=== PATIENT | male | born 1995 | race Caucasian/White ===

== ENCOUNTER → 2019-07-08 12:24 | Outpatient (CLI) | payer MEDICAID, SELFPAY ==
--- NOTE | ~2019-07-08 | XR_ITS ---
EXAMINATION: XR chest 2V EXAM DATE: 07/08/2019 13:04 INDICATION: Tobacco use. TECHNIQUE: Frontal and lateral projections of the chest obtained and reviewed. Comparison is made to prior examination from 07/17/17. FINDINGS: The lungs are clear. There are no pleural effusions. The cardiomediastinal silhouette is within normal limits. There is no pneumothorax suspected. The bones and soft tissues are unremarkab le. IMPRESSION: No acute cardiopulmonary findings. Reviewed, dictated and finalized at location A. LAW[employer]ER
== END ==
PROVIDERS: PCP Emergency Medicine; Visit Provider Emergency Medicine
DX: Z72.0 Tobacco use (principal)
CPT/HCPCS: 71046

== ENCOUNTER 2020-01-01 22:14 | Emergency (ER) | payer OTHER, SELFPAY ==
--- NOTE | ~2020-01-01 | CT_ITS ---
EXAMINATION: CT abdomen pelvis w con DATE: 01/01/2020 23:54 INDICATION: Lower abdominal pain TECHNIQUE: Computed tomography (CT) of the abdomen and pelvis was performed with 100 cc Omnipaque 350 intravenous contrast. The dose-length product was 1582.76 mGy-cm. Automated exposure control and ite rative reconstruction technique were employed. COMPARISON: CT dated 06/02/2017 FINDINGS: Lung bases are unremarkable. Heart size normal. No pleural or pericardial effusion. No sign ificant vascular abnormality. No lymphadenopathy. Fatty infiltration of the liver. The spleen, pancreas, adrenal glands and kidneys are unremarkable. G allbladder is present nonobstructive bowel gas pattern. No free air or free fluid. Grade 1 spondyloli sthesis at L5-S1 secondary to bilateral spondylolysis. No acute osseous abnormality. IMPRESSION: 1. No acute abdominal abnormality. Reviewed, dictated and finalized at location B.
[2020-01-01 22:18] VITALS: BP 154/97; PULSE 97; RESP 18; TEMP 35.7; O2SAT 97
[2020-01-01 22:39] LABS: Basophils Absolute Auto 0.2 K/mm3 (0.0-0.1); Basophils Percent Auto 0.9 % (0.2-1.2); Eosinophils Absolute Auto 1.1 K/mm3 (0-0.3); Eosinophils Percent Auto 5.6 % (0-4.4); Hematocrit 47.6 % (42.0-52.0); Hemoglobin 16.4 g/dL (14.0-18.0); Immature Granulocyte Absolute 0.09 K/mm3 (0.00-0.031); Immature Granulocyte Percent A 0.5 % (0-0.5); Lymphocytes Absolute Auto 5.09 K/mm3 (0.9-3.2); Lymphocytes Percent Auto 27.3 % (18.3-44.2); Mean Corpuscular HGB Conc 34.5 g/dl (32-36); Mean Corpuscular Hemoglobin 29.5 pg (26-34); Mean Corpuscular Volume 85.8 fl (80-100); Mean Platelet Volume 11.5 fl (7.4-10.4); Monocytes Absolute Auto 1.1 K/mm3 (0.1-0.6); Monocytes Percent Auto 5.7 % (2.6-8.5); Neutrophils Absolute Auto 11.2 K/mm3 (1.3-6.7); Platelet Count Result 245 k/mm3 (150-375); Red Blood Count 5.55 M/mm3 (4.6-6.20); Red Cell Distribution Width 12.8 % (11.5-14.5); White Blood Count 18.6 K/mm3 (4.5-10.0)
[2020-01-01 22:43] LABS: Add Urine Microscopic? YES; Appearance Urine Clear (Clear); Bacteria Urine Trace /hpf; Bilirubin Urine Negative (Negative); Blood Urine Negative (Negative); Color Urine Yellow (Yellow); Glucose Urine UA Negative (Negative); Ketones Urine Trace mg/dL (Negative); Leukocyte Esterase Ur Negative LEU/UL (Negative); Mucus Urine Heavy /lpf; Nitrate Urine Negative (Negative); Protein Urine 2+ mg/dL (Negative); RBC Urine 0-2 /hpf (0-2); Squamous Epithelial Cell Urine Moderate /hpf (Few)
[2020-01-01 22:44] LABS: Specific Grav Ur 1.036 (1.001-1.035)
[2020-01-01 23:00] LABS: Alanine Aminotransferase 60 U/L (4-50); Alkaline Phosphatase 81 U/L (38-126); Aspartate Amino Transferase 53 U/L (17-59); Bilirubin,Total 0.6 mg/dL (0.2-1.3); Blood Urea Nitrogen 13 mg/dL (9-20); Calcium 9.9 mg/dL (8.4-10.2); Carbon Dioxide 27 mmol/L (22-30); Chloride 98 mmol/L (98-107); Estimated CRCL calculation 147 ml/min; Estimated Glomerular Filt Rate > 60; Glucose 155 mg/dL (75-110); Lipase 33 U/L (23-300); Potassium 3.9 mmol/L (3.4-5.0); Sodium 135 mmol/L (137-145)
--- NOTE | 2020-01-01 23:27 | ED.ABDPAIN ---
HPI - Abdominal Pain General Chief Complaint: Abdominal Pain Stated Complaint: ABD PAIN Time Seen by Provider: 01/01/20 23:23 History of Present Illness HPI narrative: Patient presents with his mother for lower abdominal pain. Started a week and half ago. Is been waxing and waning but has been persistent. The pain is now 6 out of 10. He does not want any pain medication. He has had no nausea or vomiting. He has had no blood in his stool. He had a upper and lower GI previously and had gastritis and irritable bowel syndrome. He has had no weight loss. Pain is better when he lays flat. Pain is worse with bowel movement or eating. 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 He smokes cigarettes, drinks alcohol, and does marijuana. MD elicited complaint: abdominal pain Pertinent past history: gastritis and other (Irritable bowel syndrome) Onset (ago): week(s) Pain Consistency: constant Related Data Allergies Allergy/AdvReac Type Severity Reaction Status Date / Time No Known Allergies Allergy Verified 01/01/20 22:15 Review of Systems Review of Systems: Narrative: CONSTITUTIONAL: Denies fever, chills, or sweats. EYES: Denies visual changes, redness, or discharge. ENT: Denies rhinorrhea, congestion, sore throat, or otalgia. CARDIOVASCULAR: Denies chest pain, palpitations, or edema. RESPIRATORY: Denies cough or dyspnea. GASTROINTESTINAL: He has abdominal pain, but not nausea, vomiting, or diarrhea. GENITOURINARY: Denies dysuria or hematuria. SKIN: Denies rash or itching. MUSCULOSKELETAL: Denies back pain, joint pain, or myalgia. NEUROLOGIC: Denies headache, numbness, or weakness. PSYCHIATRIC: Denies anxiety or depression. [facility] Past Medical History Medical History (Updated 01/02/20 @ 00:55 by Bibi Dobbs MD) Gastritis Irritable bowel syndrome Morbid obesity Family History Family History (Updated 03/24/17 @ 13:53 by DOCTOR UNKNOWN) Father Diabetes mellitus Hypertension Other Family history of allergic disorder Family history of malignant neoplasm Social History Social History (Updated 01/01/20 @ 23:30 by Bibi Dobbs MD) Smoking status: Current every day smoker Alcohol intake: current Substance use: current Substance use type: marijuana Exam Narrative: Exam Narrative: GENERAL: Well-appearing, well-nourished, and in no acute distress. Morbid obesity HEAD: Normocephalic, atraumatic. EYES: PERRLA and EOMI. ENT: Nares clear, no rhinorrhea or epistaxis. Mucous membranes moist. NECK: Supple. CHEST: Clear to auscultation. No respiratory distress. HEART: Regular rate and rhythm. No murmur heard. Normal peripheral pulses. ABDOMEN: Soft,tender, nondistended, normal active bowel sounds. EXTREMITIES: Normal range of motion. No edema. SKIN: Warm, dry, no rash. NEURO: No focal deficits. Alert and oriented x3. PSYCH: Normal mood and affect. Course Reevaluation(s) Reevaluation #1: Went in to talk to the patient about his CAT scan findings. He has heard of fatty liver before but did not know he had it. He will need to follow-up with his GI doctor Dr. Hernandez. I offered to prescribe some Bentyl. 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 Date: 01/02/20 Time: 00:56 Vital Signs Vital signs: Vital Signs Temperature 96.2 F L 01/01/20 22:18 Pulse Rate 97 01/01/20 22:18 Respiratory Rate 18 01/01/20 22:18 Blood Pressure 154/97 H 01/01/20 22:18 Pulse Oximetry 97 01/01/20 22:18 Temperature 96.2 F L 01/01/20 22:18 Pulse Rate 97 01/01/20 22:18 Respiratory Rate 18 01/01/20 22:18 Blood Pressure 154/97 H 01/01/20 22:18 Pulse Oximetry 97 01/01/20 22:18 MDM - Abdominal Pain Medical Records Attestation: I reviewed the patient's medical records. Lab Data Attestation: I reviewed the patient's lab results. Result diagrams: 01/01/20 22:32 01/01/20 22:32
[2020-01-02] MEDS: SODIUM CHLORIDE 0.9% IV 1,000 ML 999 ML IV CONT (00:07)
[2020-01-02 01:04] VITALS: BP 142/78; PULSE 78; RESP 18; O2SAT 98
== END 2020-01-02 01:05 | disposition home or self-care (01) ==
PROVIDERS: Emergency Provider Emergency Medicine; PCP Internal Medicine
DX: K58.9 Irritable bowel syndrome, unspecified (principal); R10.84 Generalized abdominal pain; E66.01 Morbid (severe) obesity due to excess calories; Z68.42 Body mass index [BMI] 45.0-49.9, adult; F17.200 Nicotine dependence, unspecified, uncomplicated
CPT/HCPCS: 36415; 74177; 80053; 81001; 83690; 85025; 96360; 99284; J7030; Q9967

== ENCOUNTER 2020-01-10 17:24 | Emergency (ER) | payer OTHER, SELFPAY ==
[2020-01-10 17:35] VITALS: BP 167/112; PULSE 101; RESP 20; TEMP 36.4; O2SAT 97
--- NOTE | 2020-01-10 17:39 | ED.GENADULT ---
HPI - General Adult General Chief complaint: Abdominal Pain Stated complaint: L side pain Time Seen by Provider: 01/10/20 17:39 Source: patient and RN notes reviewed Mode of arrival: ambulatory Limitations: no limitations History of Present Illness HPI narrative: 24-year-old male presents with complaints of left lower abdomen pain for the past 14 days. Ibuprofen (last this morning) and Bentyl without relief. History of IBS ad Gastritis. Diagnosis with Diabetes 7 months ago and started on Metformin. No significant genital pain. No genital discharge. No concerns for STDs. No fever or chills. No nausea, vomiting, or diarrhea. No flank pain. Exacerbating factors consist of having bowel movement. Denies dysuria, hematuria, and genital bleeding. No blood in stool or constipation. Last BM was today and normal. Urine out put with in normal limits. The patient reports he have not been diagnosed with COVID-19. The patient reports he is not waiting for the results of a COVID-19 lab test. The patient reports he do not have fever, chills, weakness, fatigue, or myalgia. The patient reports he do not have a new or worsening cough or shortness of breath. Denies chest pain. The patient reports he do not have any rhinorrhea, congestion, sore throat, nausea, vomiting, and diarrhea. Tolerating po intake well. Denies recent traveling. Denies concerns for COVID-19 or exposures been home since [id number] order except for essential household needs and return home. At this time, patient is not suspected of having COVID-19. Some parts of this dictation were generated by voice recognition software and may contain typographical and/or grammatical inaccuracies. Related Data Home Medications Medication Instructions Recorded Confirmed metformin 500 mg PO DAILY 01/10/20 01/10/20 Allergies Allergy/AdvReac Type Severity Reaction Status Date / Time No Known Allergies Allergy Verified 01/01/20 22:15 Review of Systems Review of Systems: Narrative: CONSTITUTIONAL: Denies fever, chills, sweats. EYES: Denies visual changes, redness, discharge. ENT: Denies rhinorrhea, congestion, sore throat, otalgia. CARDIOVASCULAR: Denies chest pain, palpitations, edema. RESPIRATORY: Denies dyspnea, wheezing, cough. GASTROINTESTINAL: Complains of left lower abdomen pain. Denies vomiting, diarrhea, nausea, and decrease appetite. GENITOURINARY: Denies dysuria, hematuria, abnormal discharge. SKIN: Denies rash or itching. MUSCULOSKELETAL: Denies acute back pain, joint pain, or myalgia. NEUROLOGIC: Denies numbness or focal weakness. PSYCHIATRIC: Denies anxiety or depression. All systems reviewed & are unremarkable except as noted in HPI and below. [facility] Past Medical History Medical History (Updated 01/11/20 @ 00:00 by Ashutosh Leung) Gastritis Irritable bowel syndrome Morbid obesity Surgical History Surgical History (Updated 01/10/20 @ 17:56 by CANDIDO Morocho) History of adenoidectomy History of colonoscopy History of endoscopy History of knee surgery Bilateral History of tonsillectomy Family History Family History Father Diabetes mellitus Hypertension Other Family history of allergic disorder Family history of malignant neoplasm Social History Social History Smoking status: Current every day smoker Alcohol intake: current Substance use: current Substance use type: marijuana Gender identity (if verbalized by the patient): Male Comments At time of signature, agree with nurse past medical, surgical, social, and family history. There is relevant patient's past medical history pertinent to the presenting complaint, no relevant family history pertinent to the presenting complaint. Exam Narrative: Exam Narrative: GENERAL: This is a well-nourished, well-developed patient, in no apparent distress.
[2020-01-10] MEDS: KETOROLAC (*BKC) 60 MG/2 ML VIAL IM (17:54)
[2020-01-10 17:57] VITALS: BP 170/82
== END 2020-01-10 18:05 | disposition home or self-care (01) ==
PROVIDERS: Emergency Provider Nurse Practitioner Family
DX: R10.32 Left lower quadrant pain (principal); F17.200 Nicotine dependence, unspecified, uncomplicated; E66.01 Morbid (severe) obesity due to excess calories; Z68.42 Body mass index [BMI] 45.0-49.9, adult
CPT/HCPCS: 96372; 99213; G0463; J1885

== ENCOUNTER 2021-03-23 16:37 | Emergency (ER) | payer OTHER, SELFPAY ==
[2021-03-23 16:56] VITALS: BP 177/106; PULSE 80; RESP 20; TEMP 36.7; O2SAT 96
[2021-03-23 17:25] LABS: Basophils Percent Auto 0.5 % (0.2-1.2); Eosinophils Absolute Auto 1.1 K/mm3 (0-0.3); Hematocrit 49.5 % (42.0-52.0); Immature Granulocyte Absolute 0.01 K/mm3 (0.00-0.031); Immature Granulocyte Percent A 0.2 % (0-0.5); Immature Platelet Fraction Pct 7.7 % (0.9-11.2); Lymphocytes Absolute Auto 2.18 K/mm3 (0.9-3.2); Lymphocytes Percent Auto 35.3 % (18.3-44.2); Mean Corpuscular HGB Conc 34.3 g/dl (32-36); Mean Corpuscular Hemoglobin 30.2 pg (26-34); Mean Corpuscular Volume 87.9 fl (80-100); Mean Platelet Volume 11.7 fl (7.4-10.4); Monocytes Absolute Auto 0.6 K/mm3 (0.1-0.6); Monocytes Percent Auto 9.4 % (2.6-8.5); Neutrophils Absolute Auto 2.3 K/mm3 (1.3-6.7); Neutrophils Percent Auto 37.6 % (45.5-73.1); Platelet Count Result 137 k/mm3 (150-375); Red Blood Count 5.63 M/mm3 (4.6-6.20); Red Cell Distribution Width 13.1 % (11.5-14.5); White Blood Count 6.2 K/mm3 (4.5-10.0)
[2021-03-23 17:38] LABS: INR 0.9; Prothrombin Time 12.5 Seconds (11.1-14.7)
[2021-03-23 17:39] LABS: Partial Thromboplastin Time 29.2 SECONDS (22.3-36.8)
[2021-03-23 17:45] LABS: Alanine Aminotransferase 31 U/L (4-50); Albumin Level 5.2 g/dL (3.5-5.1); Alkaline Phosphatase 57 U/L (38-126); Anion Gap 12 mmol/L (8-16); Aspartate Amino Transferase 33 U/L (17-59); Bilirubin,Total 0.4 mg/dL (0.2-1.3); Blood Urea Nitrogen 13 mg/dL (9-20); Calcium 9.4 mg/dL (8.4-10.2); Carbon Dioxide 24 mmol/L (22-30); Chloride 104 mmol/L (98-107); Estimated CRCL calculation 182 ml/min; Estimated Glomerular Filt Rate > 60; Glucose 99 mg/dL (65-110); Potassium 3.8 mmol/L (3.4-5.0); Sodium 140 mmol/L (137-145)
--- NOTE | 2021-03-23 18:38 | PC.NURSE ---
pt to desk stating going to leave. pt amb out of ed in no distress and with steady gait.
== END 2021-03-23 18:38 | disposition left against medical advice (07) ==
PROVIDERS: Emergency Provider Emergency Medicine
DX: K92.1 Melena (principal)
CPT/HCPCS: 36415; 80053; 85025; 85055; 85610; 85730; 86850; 86900; 86901; 99199

== ENCOUNTER 2022-08-31 08:10 | Emergency (ER) | payer OTHER, SELFPAY ==
--- NOTE | ~2022-08-31 | XR_ITS ---
EXAMINATION: XR hand RT min 3V, XR wrist RT min 3V DATE: 08/31/2022 08:29 INDICATION: Right hand pain post fall TECHNIQUE: 1. Posteroanterior, ulnar deviation, oblique, and lateral views of the right wrist were obtained. 2. Dorsal palmar, oblique and lateral views of the right hand were obtained. COMPARISON: None. FINDINGS: Alignment of the hand and wrist is normal. No fracture identified. Joint spaces are normal. Suggest ion of some soft tissue swelling at the thenar eminence. IMPRESSION: 1. No osseous abnormality at the right hand or wrist. Reviewed, dictated and finalized at location A. IMPRESSION: 1. No osseous abnormality at the right hand or wrist.
[2022-08-31 08:12] VITALS: BP 184/98; PULSE 109; RESP 18; TEMP 36.9; O2SAT 97
--- NOTE | 2022-08-31 08:20 | ED.GENADULT ---
HPI - General Adult General Chief complaint: Extremity Injury, Upper Stated complaint: right hand injury/wrestling fall Time Seen by Provider: 08/31/22 08:15 History of Present Illness HPI narrative: 27-year-old male presented to the emergency department for evaluation after having right wrist and hand pain. 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 Patient states there was initially some deformity of the right wrist and hand. Patient does complain of pain that radiates from the wrist up to his elbow but denies any other pain or injury. Patient denies striking head denies loss of consciousness. Patient denies any associated numbness or weakness. Patient does report pain with movement. Related Data Home Medications Medication Instructions Recorded Confirmed metformin 500 mg tablet,extended 500 mg PO DAILY 01/10/20 01/10/20 release 24 hr Allergies Allergy/AdvReac Type Severity Reaction Status Date / Time No Known Allergies Allergy Verified 08/31/22 08:20 Review of Systems Review of Systems: All systems reviewed & are unremarkable except as noted in HPI and below PMFSH Past Medical History Medical History (Updated 08/31/22 @ 16:50 by Regis Duenas MD) Gastritis Irritable bowel syndrome Morbid obesity Surgical History Surgical History (Updated 01/10/20 @ 17:56 by CANDIDO Morocho) History of adenoidectomy History of colonoscopy History of endoscopy History of knee surgery Bilateral History of tonsillectomy Family History Family History Father Diabetes mellitus Hypertension Other Family history of allergic disorder Family history of malignant neoplasm Social History Social History Smoking status: Current every day smoker Alcohol intake: current Substance use: current Substance use type: marijuana Gender identity (if verbalized by the patient): Male Exam Narrative: APPEARANCE: Well appearing, no pain, no distress, well-nourished. HEAD: normocephalic, atraumatic. EYES: PERRLA/EOMI, conjunctivae clear. NOSE: Normal no drainage NECK: Supple. No adenopathy, no masses. RESPIRATORY: Airway patent, respirations nonlabored. Clear to auscultation bilaterally, no rales, rhonchi, wheezing. CARDIOVASCULAR: Regular rate and rhythm without murmurs rubs or gallops. ABDOMINAL: Soft, nontender, nondistended, normal bowel sounds MUSCULOSKELETAL: Swelling and tenderness of right wrist. No tenderness to palpation of shoulder or elbow. Strong pulses and strong cap refill on right wrist and hand. Range of motion limited secondary to pain. NEURO: Alert. Cranial nerves II through XII intact. Grossly intact SKIN: Warm, dry. Normal Color Course Course Emergency Course: 27-year-old male with swelling and injury to right wrist and pain in right hand after a wrestling injury. X-rays were ordered to rule out acute fractures dislocations. X-rays showed no acute abnormalities of wrist or hand. Patient injuries are consistent with a wrist sprain. Patient does report some decree sensation over the distal fingertips. Patient will be provided Darvin wrap for comfort and was advised to wear a cock up volar brace. Patient was also encouraged of close follow-up with his primary care physician. Patient inquired about when he can return to wrestling and patient was advised to have follow-up with his primary care physician in order to be cleared to wrestle. He was warned of the risks of a worsened injury if he continues to wrestle. All questions concerns were addressed and patient was comfortable with the plan for discharge and close follow-up. Vital Signs Vital signs: Vital Signs Temperature 98.4 F 08/31/22 08:12 Pulse Rate 109 H 08/31/22 08:12 Respiratory Rate 18 08/31/22 08:12 Blood Pressure 184/98 H 08/31/22 08:12 Pulse Oximetry 97 08/31/22 0
== END 2022-08-31 10:29 | disposition home or self-care (01) ==
PROVIDERS: Emergency Provider Emergency Medicine
DX: S63.501A Unspecified sprain of right wrist, initial encounter (principal); X58.XXXA Exposure to other specified factors, initial encounter; Y93.72 Activity, wrestling
CPT/HCPCS: 73110; 73130; 99283

== ENCOUNTER 2024-11-01 19:58 | Emergency (ER) | payer OTHER, SELFPAY ==
--- OUTSIDE RECORDS SUMMARY | 2024-11-01 20:00 | XMS_ITS | Clinical Summary ---
Author Organization [facility] Address [address] [place] [address] Care Team Providers [employer] Counter Person Name Role Phone Paul Solis MD Primary Care Provider [phone] Allergies No known active allergies Medications ARIPiprazole (ABILIFY) 2 mg tablet 10/28/2021 Active dicyclomine (BENTYL) 20 mg tablet Take 1 tablet (20 mg total) by mouth 4 (four) times a day 120 tablet 11 12/10/2021 Active hydrOXYzine (ATARAX) 10 mg tablet 12/30/2021 Active rifAXIMin (XIFAXAN) 550 mg tabletIndication s:Small Intestinal Bacterial Overgrowth (SIBO) Take 1 tablet (550 mg total) by mouth 3 (three) times a day 33 tablet 01/06/2022 Active rifAXIMin (XIFAXAN) 550 mg tabletIndication s:Small Intestinal Bacterial Overgrowth (SIBO) Take 1 tablet (550 mg total) by mouth 2 (two) times a day 9 tablet 01/06/2022 Active Active Problems Problem Noted Date Diagnosed Date Abdominal pain 12/10/2021 Overview (12/10/2021): Added automatically from request for surgery [id number] Diarrhea 12/10/2021 Overview (12/10/2021): Added automatically from request for surgery [id number] Sprain of right knee 09/08/2021 Surgical History Surgery Date Site/Laterality Comments KNEE ARTHROSCOPY Left Arthroscopy knee TONSILECTOMY, ADENOIDECTOMY, BILATERAL MYRINGOTOMY AND TUBES FINGER SURGERY COLONOSCOPY 12/20/2021 2013 UPPER GASTROINTESTINAL ENDOSCOPY 12/20/2021 last one 8-9 years ago Medical History Medical History Date Comments Hx Other Medical removed piece o f bone from knee; Laterality: right IBS (irritable bowel syndrome) Anxiety Family History Medical History Relation Name Comments Diabetes Other 1 Family history of Diabetes mellitus; Heart disease Other 2 Family history of Heart disease; Hypertension Other 3 Family history of Hypertension; Relation Name Status Comments Other 1 Other 2 Other 3 Social History Tobacco Use Types Packs/Day Years Used Date Smoking Tobacco: Former Alcohol Use Standard Drinks/Week Comments No 0 (1 standard drink = 0.6 oz pur e alcohol) AUDIT-C Answer Date Recorded Frequency of Alcohol Consumption Not on file 01/06/2022 Q2: How many drinks containi ng alcohol do you have on a typical day when you are drinking? 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 Gender Identity Not on file Sexual Orientation Not on file Obstetrics History Last Filed Vital Signs Vital Sign Reading Time Taken Comments Blood Pressure 142/90 01/06/2022 1:51 PM CDT Pulse 78 01/06/2022 1:51 PM CDT Temperature 36.1 C (97 F) 12/20/2021 12:36 PM CDT Respiratory Rate 15 12/20/2021 2:00 PM CDT Oxygen Saturation 97% 01/06/2022 1:51 PM CDT Inhaled Oxygen Concentration - - Weight 162.8 kg (359 lb) 01/06/2022 1:51 PM CDT Height 182.9 cm (6') 01/06/2022 1:51 PM CDT Body Mass Index 48.69 01/06/2022 1:51 PM CDT Plan of Treatment Health Maintenance Due Date Last Done Comments Hepatitis C Screening 1997 Varicella Vaccines (1 of 2 - 13+ 2-dose series) 2010 Hepatitis B Screening 2015 Regular Well Visit/Exam 18-64 2015 DTaP/Tdap/Td Vaccine (2 - Td or Tdap) 03/04/2022 03/04/2012 Depression Screening 01/06/2023 01/06/2022, 12/10/2021 Influenza Vaccine (#1) 2024 HPV Vaccines Aged Out No longer eligi ble based on patient's age to complete this topic Pneumococcal vaccine <65 Aged Out No longer eligible based on patient's age to complete this topic Insurance [facility] Care Teams [employer] Counter Person Relationship Specialty [place] [address] [place] [id number] PCP - General 09/08/21
--- OUTSIDE RECORDS SUMMARY | 2024-11-01 20:00 | XMS_ITS | Referral Summary ---
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
--- OUTSIDE RECORDS SUMMARY | 2024-11-01 20:00 | XMS_ITS | Continuity of Care Document ---
Author Organization [facility] Address [address] [place] [address] Phone Care Team Providers Care Clinical Product Specialist Name Role Phone Ayad Simons MD Unavailable Unavailable Allergies, Adverse Reactions, Alerts Substance Reaction Status Criticality No Known Allergies Active No Inform ation Medications Medication Instructions Dosage Effective Dates (start - stop) Status Comments No Drug Therapy Prescribed Procedures Procedure Date OFFICE/OUTPATIENT VISIT, EST OFFICE/OUTPATIENT VISIT, EST PREV VISIT, EST, AGE 18-39 OFFICE/OUTPATIENT VISIT, EST OFFICE/OUTPATIENT VISIT, EST PREV VISIT, EST, AGE 18-39 OFFICE/OUTPATIENT VISIT, EST OFFICE/OUTPATIENT VISIT, EST OFFICE/OUTPATIENT VISIT, EST OFFICE/OUTPATIENT VISIT, EST OFFICE/OUTPATIENT VISIT, EST OFFICE/OUTPATIENT VISIT, EST OFFICE/OUTPATIENT VISIT, EST OFFICE/OUTPATIENT VISIT, EST PREV VISIT, NEW, AGE 18-39 Advance Directives Directive Yes / No Effective Date File Name No Information Encounters Encounter Description Practice Location Reason(s) For Visit Diagnoses Date Provider Providers Copied on Encounter [facility], [address] [place], [place], [id number], tel:[phone] [facility] No Information 8 Ronak Lion. [address] [place], [address] , [place]. tel:[phone] OFFICE/OUTPA TIENT VISIT, EST [facility], [address], [place], [place], [address], [place] tel:[phone] [facility] HTn (chief complaint) DM (chief complaint) sleep apnea1 (chief complaint) work1 (chief complaint) Type 2 diabetes mellitus without complicationsSleep apneaEssential (primary) hypertensionEncount er for STD screening 8 Ronak Munson [address], [place], [place], [address] , [place]. [phone] OFFICE/OUTPA TIENT VISIT, EST [facility], [address], [place], [place], [address], [place] tel:[phone] [facility] DM (chief complaint) LFT (chief complaint) HLP (chief complaint) HTN (chief complaint) Body mass index (BMI) 45.0-49.9, adultFatty liverEssential (primary) hypertensionType 2 diabetes mellitus without complicationsHyperl ipidemia 8 Ronak Munson [address], [place], [place], [address] , [place]. tel:[phone] Referring Provider: Benjy B[address], [place], [place], [address]. tel:[phone] PREV VISIT, EST, AGE 18-39 [facility], [address], [place], [place], [address], [place] tel:[phone] [facility] PHysical (chief complaint) Encntr for general adult medical exam w/o abnormal findings 8 Ronak Munson [address], [place], [place], [address] , [place]. tel:[phone] Referring Provider: Benjy Bauer [address], [place], [place], [address]. tel:[phone] OFFICE/OUTPA TIENT VISIT, EST [facility], [address], [place], [place], [address], [place] tel:[phone] [facility] sleep apnea1 (chief complaint) right axillary (chief complaint) obesity1 (chief complaint) fatty liver1 (chief complaint) Sleep apneaLymphadenopath yBody mass index (BMI) 45.0-49.9, adultFatty liver Apr-0 7 Ronak Lion. [address], [place], [place], [address] , [place]. tel:[phone] Referring Provider: Benjy Bauer [address], [place], [place], [address]. tel:[phone] OFFICE/OUTPA TIENT VISIT, EST [facility], [address], [place], [place], [address], [place] tel:[phone] [facility] axillary lymph1 (chief complaint) obesity1 (chief complaint) shoulder pain1 (chief complaint) LymphadenopathyPain in left shoulderBody mass index (BMI) 45.0-49.9, adultSleep apnea Feb-2 7 Ronak Munson [address], [place], [place], [address] , [place]. tel:[phone] Referring Provider: Benjy Bauer [address], [place], [place], [address]. tel:[phone] PREV VISIT, EST, AGE 18-39 [facility], [address], [place], [place], [address], [place] tel:[phone] [facility] PHysical (chief complaint) Encounter for general adult medical exam w abnormal findingsFatty liverPain in left shoulderAbnormal weight gain 7 oRnak Munson [address], [place], [place], [address] , [place]. tel:[phone] Referring Provider: Benjy Bauer [address], [place], [place], [address]. tel:[phone] OFFICE/OUTPA TIENT VISIT, EST [facility], [address], [place], [place], [address], [place] tel:[phone] [facility] HTN (chief complaint) anxiety1 (chief complaint) Essential (primary) hypertensionGeneral ized Anxiety Disorder 6 Ronak Lion. [address], [place], [place], [address] , [place]. tel:[phone] Referring Provider: Ayad Simons, [address], [place], [place], [address]. tel:[phone] OFFICE/OUTPA TIENT VISIT, [facility], [address], [place], [place], [address], [place] tel:[phone] [facility] melena1 (chief complaint) anxiety1 (chief complaint) GastroparesisOccult blood in stoolGeneralized Anxiety Disorder 6 Ronak Lion. [address], [place], [place], [address] , [place]. tel:[phone] Referring Provider: Benjy Bauer [address], [place], [place], [address]. tel:[phone] OFFICE/OUTPA TIENT VISIT, [facility], [address], [place], [place], [address], [place] tel:[phone] [facility] anxiety1 (chief complaint) stomach (chief complaint) GERD w/o esophagitisGastropa resisGeneralized Anxiety Disorder 6 Ronak Lion. [address], [place], [place], [address] , [place]. tel:[phone] Referring Provider: Benjy Bauer [address], [place], [place], [address]. tel:[phone] OFFICE/OUTPA TIENT VISIT, [facility], [address], [place], [place], [address], [place] tel:[phone] [facility] abd pain (chief complaint) anxiety1 (chief complaint) Occult blood in stoolGastroparesisG eneralized Anxiety Disorder 6 Ronak Lion. [address], [place], [place], [address] , [place]. tel:[phone] Referring Provider: Ayad Simons [address], [place], [place], [address]. tel:[phone] OFFICE/OUTPA TIENT VISIT, [facility], [address], [place], [place], [address], [place] tel:[phone] [facility] anxiety1 (chief complaint) GERD1 (chief complaint) GERD w/o esophagitisLiver diseaseGeneralized Anxiety Disorder 0 6 Ronak Lion. [address], [place], [place], [address] , [place]. tel:[phone] Referring Provider: Ayad Simons [address], [place], [place], [address]. tel:[phone] OFFICE/OUTPA TIENT VISIT, [facility], [address], [place], [place], [address], [place] tel:[phone] [facility] GERD1 (chief complaint) liver (chief complaint) anxiety1 (chief complaint) GERD w/o esophagitisLiver diseaseGeneralized anxiety disorder 6 Ronak Lion. [address], [place], [place], [address] , [place]. tel:[phone] Referring Provider: Benjy Bauer [address], [place], [place], [address]. tel:[phone] OFFICE/OUTPA TIENT VISIT, [facility], [address], [place], [place], [address], [place] tel:[phone] [facility] glycemia1 (chief complaint) LFT (chief complaint) GERD1 (chief complaint) anxiety1 (chief complaint) HyperglycemiaLiver diseaseGERD w/o esophagitisGenerali zed Anxiety Disorder 6 Ronak Lion. [address], [place], [place], [address] , [place]. tel:[phone] Referring Provider: Benjy Bauer [address], [place], [place], [address]. tel:[phone] PREV VISIT, NEW, AGE 18-39 [facility], [address], [place], [place], [address], [place] tel:[phone] [facility] PHysical (chief complaint) Encntr for general adult medical exam w/o abnormal findings 6 Ronak Lion. [address], [place], [place], [address] , [place]. tel:[phone] Referring Provider: Ayad Simons, [address], [place], [place], [address]. tel:[phone] Family History Family Member Type Diagnosis Age At Onset Father Problem (finding) Diabetes mellitus type 2 Mother Problem (finding) RA Father Problem (finding) Hypertension Brother Problem (finding) Alive and well Payers Payer name Insurance type Covered green party ID Authoriza tion(s) No Information Social History Type Description Quantity Date Captured Comments Sex Male Smoking Status No Information Chief Complaint And Reason For Visit No Information Plan Of Treatment Date Type Action Status Goal Special diet education compl eted Goal Prescribed dietary intake co mpleted Goal Special diet education compl eted Referral Ordered: Juan Lopez (related to Lymphadenopathy) ordered Referral Ordered: SLEEP STUDY, ATTENDED ordered Referral Referred To: Juan Lopez [address] [place], [phone] Ordered: Referrals: Juan Lopez. Evaluate and treat ordered Referral Ordered: Physical Therapy (related to Pain in left shoulder) ordered Referral Ordered: Juan Mixon (related to Pain in left shoulder) ordered Referral Ordered: SHOULDER XRAY Left ordered Referral Referred To: Juan Mixon [address] [place], [phone] Ordered: Referrals: Juan Mixon. Evaluate and treat ordered Referral Referred To: Physical Therapy Ordered: Referrals: Physical Therapy. Evaluate and treat ordered Referral Ordered: UPPER GI W/ KUB ordered Referral Ordered: Gastroenterology (related to Encntr for general adult medical exam w/o abnormal findings) ordered Referral Ordered: US EXAM, ABDOM, COMPLETE ordered Referral Ordered: Referrals: Gastroenterology. Evaluate and treat ordered History Of Present Illness Encounter Date Complaint History Of Prese nt Illness HTn Pt has mild HTn pt denies any chest pain or headache. 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 Pt does not want medication. Pt denies any polyuria, polydipsia. Pt denies any numbness LFT Pt has fatty santo er. Pt does not have hepatitis. Pt denies any abdominal pain. pt does not drink excessive alcohol HLP Pt has mild high TG. pt is not on any diet HTN Pt has mild HTn today. pt denies any chest pian or headache PHysical Pt needs annual physical. pt is obese pt snores and he has signs of sleep apnea but he is noncompliant with sleep study. Pt also has not done lab work Pt feels ok Pt denies any fatigue or any chest pain or headache sleep apnea1 Pt has sleep golf club head former ea Pt is noncompliant with sleep study pt does snore and he feels fatigue in the morning right axillary Pt had negtive r ight axillary lymph biopsy. His lymph actually resolved. Pt denies any other nodule obesity1 Pt is obese. Pt wants to do bariatric surgery. He failed diet and exzercise. fatty liver1 Pt has fatty santo er. Pt is obese. Pt denies any abd pain. Pt does not have hepatitis axillary lymph1 Pt c/o right axi llary pain and swelling since last week. Pt woke up with it. Pt denies any other swelling area. Pt went to urgent care and he had ultrasound done which showed enlarged lymph. Pt states that it is getting smaller but it still hurts. Pt denies any fever obesity1 Pt is morbidly o bese Pt does not want weight loss surgery. Pt does snore at night Pt feels fatigue in the morning and rest of the day. Pt was diagnosed with sleep apnea but he did not use the CPAP. shoulder pain1 Pt has left shou lder pain pt is seeing ortho and will start PT soon. Pt was told he has rotator cuff tear PHysical Pt needs annual pysical Pt no loner has anxiety an ddepression and he is off lexapro and wellbutrin and doing ok Pt denies any suicidal or homicdial thought Pt stopped drinking 12 pack of soda daily and he no longer has abd pain or GErD Pt has fatty liver and high glucose. Pt no longer has melana. Ptc/o left shoulder pain for 6 months Pt was wresting and he picked somebody up and he injuried left shoulder during the process. Pt c/o constant dullache, worse with movemetn. Pt denies any recent injury Pt denies any other complaints HTN His BP was 200/1 00 while doing colonsocpy. He is here for follwo up. Pt does not have any history of HTN. His BP is normal today. Pt denies any chest apin or headache anxiety1 Pt has chronic a nxiety and depression. Pt takes wellbutrin and lexapro and doing ok. Pt denies any suicidal or homicdialt hought. Pt doing ok melena1 Pt states that h e continues to have dark stool. Pt just had another EGD done and small capsule study and was told everything is normal, Pt have some sample of dexilant from [facility] office which is helping his nauea, vomiting and gERD symptoms. Pt still has some dark stool intermittently Pt denies any abd pain. Pt also had gastric empty study done but I dont have result. When I called [facility] and they told me the order was given by [facility] so I could not get the result anxiety1 Pt has chronic a nxeity and depression. Pt takes wellbutrin and lexapro and doing ok. Pt denie sany stevenson icidal or homicdial thought anxiety1 Pt has chronic a nxiety and depression. Pt takes lexapro and wellbutrin and doing ok. Pt denies any suciidal or homicidal thought stomach Pt has chornic n ausea, vomiting, and ? gastroparesis on recent EGD and he has GERD and midepigastric pain. Pt also has been having dark stool. Pt will have another EGD and also small bowel study by GI soon Pt is on dexilant now and he feels much better in terms of abd pain and nausea. Pt denies any acute or worsening abd apin abd pain Pt c/o one week history fo diffuse abdominal pain, sharp in nature. pt has been vomiting with yellow and green stuff, Pt notices some small amount of blood vomitus. Pt has been having dark color diarrhea also Pt just had EGD two weeks ago which only showed gastritis. Pt is able to eat and keep fluid down. Pt denies any worsening pain with food. anxiety1 Pt has chronic a nxiety an ddepression Pt takes lexapro and wellbutrin and doing much better. Pt denies any suicidal or homicdial thought pt denie sany cyring spells anxiety1 Pt has chronic a nxiety and depression. Pt states that he still feels depressed while on wellbutrin. Pt denies any crying spells Pt denies any suicidal or homicdial thought Pt has poor motivation. GERD1 Pt has gERd. Pt takes omeprazole. Pt states that he vomits daily in the morning, but not after food Pt c/o midepigastic and abd pain. Pt has fatty liver but no gallstone. Pt will have EGD this thursday Pt denies any acute pain. Food does not make pain worse liver Still dont have ultrasound yet. Pt denies any abd pain anxiety1 Pt has chronic a nxiety and depression. Pt takes wellbutirn and doing ok but he notices more depressed and anxious lately. Pt denie sany suididal or homicidal thought GERD1 Pt has GERD. Pt takes 40 mg omeprazole and doing ok. Pt unable to tolerate 20 mg omeprazole. Pt has appointment with EGD in December. glycemia1 Pt has mild elev ated glucose on lab. Pt denie sany polyruia, polydipsia LFT Pt has mild elev ation of LFT. Pt has negative hepatitis. US pending no abd pain or jaundice GERD1 Pt states that o meprazole is helping but he still has some midepigastic pain. Pt has daily nausea, vomiting. Pt denies any wrosening symptoms. Pt denies any worsening pain after food anxiety1 Pt has anxiety a nd depression. Wellbutin helps much better than previous sSRI. P denie sany suicidal or homicidal thougt. Pt denies any cyring spells PHysical Pt needs annual physical. pt has chronic GERD. Pt states that he has been having GERD and heartburn and nausea intermittently for at least 5 years. Pt takes dexilant but not working. Pt states that spicy food makes worse. Pt c/o intermittent midepigastric pain, worse with food. Pt has nonbloody diarrhe as well. Pt also has history of fatty liver Pt is obese. Pt has chronic anxiety and depression Pt takes lexapro but not working. pt denie any suicidal or homicdial thought. Pt denies any crying spells. Medications Administered Medication Instructions Dosage Effective Dates (start - stop) Status Comments No Drug Therapy Prescribed Instructions Date Instruction Additional Infor mation Increase physical activity. Rela yola to Type 2 diabetes mellitus without complications Special diet education Related t o Body mass index (BMI) 45.0-49.9, adult Prescribed dietary intake Relate d to Body mass index (BMI) 45.0-49.9, adult Special diet education Related t o Body mass index (BMI) 45.0-49.9, adult Increase activity. Related to En cntr for general adult medical exam w/o abnormal findings Increase physical activity Relat ed to Sleep apnea Weight management Related to Sle ep apnea Prescribed Activity and Exercise Education Related to Dietary Surveillance and Counseling Prescribed Diet Educ ation/Lifestyle Education Regarding Diet Related to Dietary Surveillance and Counseling Weight management Related to Lym phadenopathy Increase physical activity Relat ed to Lymphadenopathy Prescribed Activity and Exercise Education Related to Dietary Surveillance and Counseling Prescribed Diet Educ ation/Lifestyle Education Regarding Diet Related to Dietary Surveillance and Counseling Prescribed Activity and Exercise Education Related to Dietary Surveillance and Counseling Prescribed Diet Educ ation/Lifestyle Education Regarding Diet Related to Dietary Surveillance and Counseling Prescribed Activity and Exercise Education Related to Dietary Surveillance and Counseling Prescribed Diet Educ ation/Lifestyle Education Regarding Diet Related to Dietary Surveillance and Counseling Prescribed Activity and Exercise Education Related to Dietary Surveillance and Counseling Prescribed Diet Educ ation/Lifestyle Education Regarding Diet Related to Dietary Surveillance and Counseling Prescribed Activity and Exercise Education Related to Dietary Surveillance and Counseling Prescribed Diet Educ ation/Lifestyle Education Regarding Diet Related to Dietary Surveillance and Counseling Prescribed Diet Educ ation/Lifestyle Education Regarding Diet Related to Dietary Surveillance and Counseling Prescribed Activity and Exercise Education Related to Dietary Surveillance and Counseling Prescribed Activity and Exercise Education Related to Dietary Surveillance and Counseling Prescribed Diet Educ ation/Lifestyle Education Regarding Diet Related to Dietary Surveillance and Counseling Prescribed Activity and Exercise Education Related to Dietary Surveillance and Counseling Prescribed Diet Educ ation/Lifestyle Education Regarding Diet Related to Dietary Surveillance and Counseling Prescribed Activity and Exercise Education Related to Dietary Surveillance and Counseling Prescribed Diet Educ ation/Lifestyle Education Regarding Diet Related to Dietary Surveillance and Counseling Prescribed Diet Educ ation/Lifestyle Education Regarding Diet Related to Dietary Surveillance and Counseling Prescribed Activity and Exercise Education Related to Dietary Surveillance and Counseling Assessments Type Assessment Date No Information
--- OUTSIDE RECORDS SUMMARY | 2024-11-01 20:00 | XMS_ITS | Clinical Summary ---
Author Organization [facility] Address [address] [place] [address] Care Team Providers Care Med Spa Manager Name Role Phone Ayad Simons MD Primary Care Provider [phone] Source Comments [facility] [employer] [facility]),non-owned Affiliates and Associated Physician Practices is amultiple site organization consisting of ambulatory clinics and hospital sitesin [place], [place], [place] and [place]. This disclosure is being madepursuant to the Care Everywhere program and may not contain all information available regarding this patient. Last updated 18.[facility] ([place] Allergies Active Allergy Reactions Criticality Noted Date Comments Buspirone Swelling 10/21/2024 Medications * Be aware that medications may not be up to date on this document. Alwaysverify current medications with the patient. ARIPiprazole (Abilify) 2 MG tablet 2 Active vitamin D, ergocalciferol, (Drisdol) 1.25 MG (38411 UT) capsule 3 Active lisinopril-hydro CHLOROthiazide (Prinzide; Zestoretic) 10-12.5 MG tablet 3 Active metFORMIN (Glucophage) 500 MG tablet 3 Active gabapentin (Neurontin) 300 MG capsuleIndicatio ns:Chronic midline low back pain with right-sided sciatica,Osteoar thritis of spine with radiculopathy, lumbosacral region TAKE 1 CAPSULE BY MOUTH THREE TIMES A DAY 90 capsule 1 3 Active methylPREDNISolo ne (Medrol Dosepak) 4 MG tabletIndication s:Chronic midline low back pain with right-sided sciatica,Osteoar thritis of spine with radiculopathy, lumbosacral region Take by mouth as directed Take as directed by mouth per package instructions. 21 tablet 4 Active pregabalin (Lyrica) 75 MG capsuleIndicatio ns:Chronic midline low back pain with right-sided sciatica,Osteoar thritis of spine with radiculopathy, lumbosacral region TAKE 1 CAPSULE BY MOUTH TWICE A DAY 60 capsule 4 Active Active Problems Problem Noted Date Diagnosed Date Diabetes mellitus without complication 5 Overview (10/21/2024): OV @ [facility] with Asiya Riveraco: 09/24/2023 Cervicalgia 11/28/2013 Social History Tobacco Use Types Packs/Day Years Used Date Smoking Tobacco: Every Day Cigarettes Smokeless Tobacco: Never Tobacco Cessation:Ready to Q uit: Not Asked; Counseling Given: Not Answered Alcohol Use Standard Drinks/Week Comments Not Currently 0 (1 standard drink = 0.6 oz pur e alcohol) Sex and Gender Information Value Date Recorded Sex Assigned at Not on file Legal Sex Male 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 Gender Identity Not on file Sexual Orientation Not on file Last Filed Vital Signs Vital Sign Reading Time Taken Comments Blood Pressure 134/94 11/28/2013 8:56 AM CDT Pulse 88 11/28/2013 8:56 AM CDT Temperature - - Respiratory Rate 20 11/28/2013 8:56 AM CDT Oxygen Saturation - - Inhaled Oxygen Concentration - - Weight 165.1 kg (364 lb) 10/01/2023 9:00 AM CDT Height 180.3 cm (5' 11 ) 12/26/2022 11:44 AM CDT Body Mass Index 50.77 12/26/2022 11:44 AM CDT Plan of Treatment Health Maintenance Due Date Last Done Comments HIV SCREENING 2012 HEPATITIS C SCREENING 06/14/2015 DIABETES-SERUM CREATININE 2015 DTAP/TDAP/TD VACCINES (1 - Tdap) 2016 HEPATITIS B VACCINE (1 of 3 - 19+ 3-dose series) 2016 PNEUMOCOCCAL VACCINE (1 of 2 - PCV) 2016 COVID-19 VACCINE ( - 2023-2 5 season) 2024 DEPRESSION SCREENING 06/22/2024 DIABETES - URINE PROTEIN SCREENING 06/22/2024 DIABETES RETINOPATHY SCREENING 10/21/2024 DIABETES-FOOT EXAM WITH MONOFILAMENT 10/21/2024 DIABETES-HGB A1C 10/21/2024 INFLUENZA VACCINE (Season Ended) 2025 ZOSTER VACCINE (1 of 2) 2047 HIB VACCINE Aged Out No longer eligi ble based on patient's age to complete this topic HPV VACCINE Aged Out No longer eligi ble based on patient's age to complete this topic MENINGOCOCCAL (Group B) VACC INE SHARED DECISION-MAKING Aged Out No longer eligibl e based on patient's age to complete this topic MENINGOCOCCAL GROUPS A/C/Y/W VACCINE Aged Out No longer eligible b ased on patient's age to complete this topic Insurance [facility] Care Teams Med Spa Manager Relationship Specialty Start Date End Date Ayad Simons MD PCP - General 09/29/18
[2024-11-01 20:01] VITALS: BP 140/76; PULSE 106; RESP 16; TEMP 37.2; O2SAT 97
--- OUTSIDE RECORDS SUMMARY | 2024-11-01 20:01 | XMS_ITS | CONTINUITY OF CARE DOCUMENT ---
Author Name jose garcia Address Unknown Organization [facility] Address [address] [place] [address] Phone [phone] Care Team Providers Care Manager Sound Name Role Phone [place] MD Unavailable [phone] INSURANCE PROVID[employer] Payer name Policy type / Coverage type [employer] party ID [id number] PAY [id number]
--- OUTSIDE RECORDS SUMMARY | 2024-11-01 20:01 | XMS_ITS | Patient Health Record ---
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 Name Role Phone Con Sung Primary Care Provider [phone] Belen Desai Unavailable [phone] Ulises Julian Unavailable [phone] Asiya Evans Unavailable Ludivina Quan Unavailable [phone] Allergies Allergen (clinical drug ingredient) Drug/Non Drug Allergy documented on EMR Reaction Allergy Type Onset Date Status Wellbutrin violent Drug Allergy Active buspirone Buspirone Swelling Drug Allergy Active Results Component Value Reference Range Notes HIV Screen *HIV 1, 2 Ab, p24 Ag ([id number]) Reviewed date:09/28/2024 11:53:41 AM Interpretation: Performing Lab:[facility], [address] [facility], Phone - [phone], Director - [facility] Notes/Report: HIV Ab/p24 Ag Screen Non Reactive Non Reactive HIV-1/HIV-2 antibodies and HIV-1 p24 antigen were NOT detected. There is no laboratory evidence of HIV infection. HIV Negative Vitamin D, 25-Hydroxy* Reviewed date:09/28/2024 11:53:41 AM Interpretation: Performing Lab:[facility], [address] [facility], Phone - [phone], Director - Ph[facility]aint Monica[facility]bert Notes/Report: Vitamin D, 25-Hydroxy 5.5 30.0-100.0 ng/mL Vitamin D deficiency has been defined by the [place] of Medicine and an Endocrine Society practice guideline as a level of serum 25-OH vitamin D less than 20 ng/mL (1,2). The Endocrine Society went on to further define vitamin D insufficiency as a level between 21 and 29 ng/mL (2). 1. IOM ([place] of Medicine). 2010. Dietary reference intakes for calcium and D. [place]: The National Academies Press. 2. Davidson MF, Paulino [place], Deana ARAMBULA, et al. Evaluation, treatment, and prevention of vitamin D deficiency: an Endocrine Society clinical practice guideline. JCEM. 2010; 96):1911-30. Lipid Panel* Reviewed date:09/28/2024 11:53:41 AM Interpretation: Performing Lab:[facility], Phone - [phone], Director [facility] Notes/Report: Cholesterol, Total 146 100-199 mg/dL Triglycerides 270 0-149 mg/dL HDL Cholesterol 30 >39 mg/dL VLDL Cholesterol Rao 44 5-40 mg/dL LDL Chol Calc ([facility]) 72 0-99 mg/dL Hemoglobin A1c* Reviewed date:09/28/2024 11:53:41 AM Interpretation: Performing [facility], Phone - [phone], Director - [place] [facility] Notes/Report: Hemoglobin A1c 6.7 4.8-5.6 % . Prediabetes: 5.7 - 6.4 Diabetes: >6.4 Glycemic control for adults with diabetes: <7.0 CBC With Differential/Platel et* Reviewed date:09/28/2024 11:53:41 AM Interpretation: Performing Lab:[facility], [facility], Phone - [phone], Director - PhDSaint Monica[facility] Notes/Report: WBC 10.2 3.4-10.8 x10E3/uL RBC 5.35 4.14-5.80 x10E6/uL Hemoglobin 15.8 13.0-17.7 g/dL Hematocrit 45.9 37.5-51.0 % MCV 86 79-97 fL MCH 29.5 26.6-33.0 pg MCHC 34.4 31.5-35.7 g/dL RDW 12.8 11.6-15.4 % Platelets 195 150-450 x10E3/uL Neutrophils 58 Not Estab. % Lymphs 27 Not Estab. % Monocytes 7 Not Estab. % Eos 6 Not Estab. % Basos 1 Not Estab. % Neutrophils (Absolute) 6.0 1.4-7.0 x10E3/uL Lymphs (Absolute) 2.8 0.7-3.1 x10E3/uL Monocytes(Absolute) 0.7 0.1-0.9 x10E3/uL Eos (Absolute) 0.6 0.0-0.4 x10E3/uL Baso (Absolute) 0.1 0.0-0.2 x10E3/uL Immature Granulocytes 1 Not Estab. % Immature Grans (Abs) 0.1 0.0-0.1 x10E3/uL CMP 14 Comprehensive Metabol ic Panel* Reviewed date:09/28/2024 11:53:41 AM Interpretation: Performing Lab:[facility] [place], [address] [facility], Phone - [phone], Director - Melodie Notes/Report: Glucose 145 70-99 mg/dL BUN 12 6-20 mg/dL Creatinine 0.88 0.76-1.27 mg/dL eGFR 121 >59 mL/min/1.73 BUN/Creatinine Ratio 14 9-20 Sodium 138 134-144 mmol/L Potassium 4.1 3.5-5.2 mmol/L Chloride 95 96-106 mmol/L Carbon Dioxide, Total 25 20-29 mmol/L Calcium 9.8 8.7-10.2 mg/dL Protein, Total 7.3 6.0-8.5 g/dL Albumin 4.8 4.3-5.2 g/dL Globulin, Total 2.5 1.5-4.5 g/dL Bilirubin, Total 0.2 0.0-1.2 mg/dL Alkaline Phosphatase 77 44-121 IU/L AST (SGOT) 20 0-40 IU/L ALT (SGPT) 26 0-44 IU/L Reason For Referral Reason Difficulty with ejac ulation Diagnosis 1 Premature ejaculatio n (F52.4) Referral Organization [facility] [place] Referring Provider First Name Asiya Referring Provider Last Name Nathan Referring Provider [facility] iciak Referred Provider [facility] Referred Provider Specialty Urology General Notes Esmer Quiñones 0 11/19/2023 12:30:03 PM >Nurse confirmed acceptance of patients insurance. Referral paperwork completed/mailed/faxed. Clinical Notes [facility], Uro logy , [address] [place], [place] [address] , , Fax: Referral Priority Routine Reason Pt would like to eng age in therapy, today was follow from his intial eval in August. He mother was just diagnosed with lung cancer, he is struggling with this. Diagnosis 1 Bipolar 2 disorder ( F31.81) Diagnosis 2 Generalized anxiety disorder (F41.1) Referral Organization [facility] Referring Provider First Name Belen Referring Provider Last Name Lloyd Referring Provider [facility] Referred Provider Specialty Behavioral H [facility] Clinical Notes Delilah Morin 02/03 10:35:52 AM >HN was able to reach client and give information on getting started with therapy through [facility]. Referral Priority Routine Reason deviated septum, per Dr. Fernando (sleep medicine), both nostrils are blocked and only breaths through his mouth. Supposed to be using CPAP Diagnosis 1 Deviated septum (J34 .2) Diagnosis 2 Obstructive sleep ap mickie (G47.33) Referral Organization [facility] Referring Provider First Name Asiya Referring Provider Last Name Nathan Referring Provider [facility] [place]iana Referred Provider Specialty Ear, nose an d throat surgeon General Notes Mara Sigala 10/05/2024 10:55:17 AM >Spoke with staff who advised this patients insurance is accepted., Mara Sigala 10/05/2024 11:18:44 AM > letter mailed, message sent Clinical Notes [facility] ([facility]), [address], [place]. [address], , Referral Priority Routine Reason In shape program Diagnosis 1 Morbid (severe) obes ity due to excess calories (E66.01) Referral Organization [facility] Referring Provider First Name Asiya Referring Provider Last Name Nathan Referring Provider [facility] Referred Provider [facility] General Notes RavenJie garcia Monica 02:48:20 PM > [facility] [place] reviewed charts for program eligibility. Kelvin is inactive in Tier and will need an IMCANS before an appointment can be made for InSHAPE if Kelvin agrees to referral Clinical Notes AgustinJie Monica 02:50:59 PM > Called placed to Kelvin. Health mentor spoke with Kelvin and he is interested in participating in the InSHAPE program. Appointment has been set for IMCANS for 10/03/24 with Belen Welch Referral Priority Routine Medications Medication SIG (Take, Route, Frequency, Duration) Notes Start Date End Date Status Vitamin D (Ergocalciferol) 75559 UNIT 1 capsule Orally once a week for 30 days 09/28/2024 Active Lisinopril-hydroCHLOROth iazide 20-25 MG TAKE 1 TABLET BY MOUTH DAILY for 30 days Active Lurasidone HCl 20 MG 1 tablet in the eladio matt with food Orally Once a day for 30 days 05/05/2024 Active Ozempic (0.25 or 0.5 MG/DOSE) 2 MG/3ML 0.25mg Subcutaneous once weekly for 30 days 09/27/2024 Active hydrOXYzine Pamoate 50 MG 1 capsule three times a day Orally for 30 days Not-Takin g hydrOXYzine Pamoate 50 MG 1 capsule three times a day Orally for 30 days As needed Active metFORMIN HCl 500 mg TAKE 1 TABLET BY MO [facility] TWICE A DAY WITH MEALS for 30 Not-Taking Social History Tobacco Use: Social History Observation Description Date Details (start date - stop date) Light tobacco s moker NA - NA Sex Assigned At : Social History Observation Description Sex Assigned At Male Alcohol Screen (Audit-C) Question Answer Notes Did you have a drink containing alcohol in the p ast year? No Dont use, Tobacco use other than smoking: Question Answer Notes Are you an other tobacco user? No PRAPARE Question Answer Notes Date Completed/Updated: 10/03/2024 What is your current housing situation? I have h ousing Are you worried about losing your housing? No What is the highest level of school that you have finished? More than high school What is your current work situation? Oth erwise unemployed but not seeking work (ex. 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 Check all that apply I do not have problems meeting my needs Has lack of transportation k ept you from medical appointments, meetings, work or from getting things needed for daily living? No How often do you see or talk to people that you care about and feel close to? (For example: talking to friends on the phone, visiting friends or family, going to jew or club meetings) 3 to 5 times a week How stressed are you? Stress is when someone feels tense, nervous, anxious, or can\t sleep at night because their mind is troubled Somewhat In the past year have you sp ent more than 2 nights in a row in a intermediate, care home, chcf center, or juvenile correctional facility? No Do you feel physically and e motionally safe where you currently live? Yes In the past year, have you b een afraid of your partner or ex-partner? No PRAPARE Score: 3 Tobacco Control (Standard) Question Answer Notes Tobacco use: Light tobacco smoker Additional Findings: Tobacco user Moderate cigar ette smoker (10-19 cigs/day) [place]: [place] Problems Problem Type SNOMED Code ICD Code Onset Dates Problem Status W/U Status Risk Notes Problem Morbid obesity (disorder) (460780427) Morbid (severe) obesity due to excess calories (E66.01) Active confirmed Problem Tobacco user (234287222) Nicotine dependence, unspecified, uncomplicated (F17.200) Active confirmed Problem Generalized anxiety disorder (69121486) Generalized anxiety disorder (F41.1) Active confirmed Problem Premature ejaculation (75713662) Premature ejaculation (F52.4) Active confirmed Problem Hypertension (15812949) Hypertension (I10) Active confirmed Problem Major depressive disorder (772096014) Major depressive disorder (F32.9) Active confirmed Problem Generalized anxiety disorder (78154011) CYNDI (generalized anxiety disorder) (F41.1) Active confirmed Problem Cannabis abuse (88966950) Cannabis abuse (F12.10) Active confirmed Problem Obstructive sleep apnea (19806594) Obstructive sleep apnea (G47.33) Active confirmed Problem Bipolar 2 disorder (10084022) Bipolar 2 disorder (F31.81) Active confirmed Problem Type 2 diabetes mellitus (23945720) Type 2 diabetes mellitus (E11.9) 3 Active confirmed Problem Overweight (640319345) Over weight (E66.3) Active confirmed Problem Low testosterone (590790032) Low testosterone (E29.1) Active confirmed Problem Nicotine dependence (54154688) Nicotine dependence (F17.200) Active confirmed Problem Obesity (002982417) Obesity (BMI 30-39.9) (E66.9) Active confirmed Problem Vitamin D deficiency (35818046) Low vitamin D level (E55.9) Active confirmed Problem Mild depression (967898983) Mild depression (F32.0) Active confirmed Problem Excessive daytime sleepiness - normal night sleep (643550155) Daytime sleepiness (R40.0) Active confirmed Problem Male hypogonadism (75354852) Hypogonadism, male (E29.1) Active confirmed Vital Signs Heart Rate 113 /min 09/27/2024 Temperature 98.9 degrees Fahrenheit 09/27/2024 Respiratory Rate 18 /min 09/27/2024 Blood pressure diastolic 86 mm Hg 09/27/2024 Oximetry 95 % 09/27/2024 Height 72 in 09/27/2024 Blood pressure systolic 132 mm Hg 09/27/2024 Weight 362.2 lbs 09/27/2024 BMI 49.12 kg/m2 09/27/2024 Encounters Encounter Location Date Provider Diagnosis [address] [address] 11/17/2023 Asiya Evans Bipolar 2 disorder F31.81 ; Tinea cruris B35.6 and Premature ejaculation F52.[address] [facility] [place] [address] 11/26/2023 Ludivina Quan Bipolar 2 disorder F31.81 ; Nicotine dependence F17.200 ; Cannabis abuse F12.10 ; CYNDI (generalized anxiety disorder) F41.1 and Mild depression F32.[address] [place] [address] 02/03/2024 Ludivina Quan Bipolar 2 disorder F31.81 ; Nicotine dependence F17.200 ; Cannabis abuse F12.10 ; CYNDI (generalized anxiety disorder) F41.1 ; Mild depression F32.0 ; Medication monitoring encounter Z51.81 and Exposure to communicable disease Z20.[address] [address] 05/05/2024 Ulises Julian Bipolar 2 disorder F31.81 and Generalized anxiety disorder F41.[address] [address] 08/02/2024 Ulises Julian Bipolar 2 disorder F31.81 and CYNDI (generalized anxiety disorder) F41.[address] [address] 09/22/2024 Ulises Julian Bipolar 2 disorder F31.81 and CYNDI (generalized anxiety disorder) F41.1 [facility] [address], [place] [address] 09/27/2024 Asiya Evans Hypertension I10 ; Type 2 diabetes mellitus E11.9 ; Nicotine dependence, unspecified, uncomplicated F17.200 ; Low vitamin D level E55.9 ; Exposure to potential infection Z20.9 ; Over weight E66.3 ; Deviated septum J34.2 and Obstructive sleep apnea G47.[address] [address] 10/03/2024 Belen Desai Major depressive disorder F32.9 and Generalized anxiety disorder F41.[address] [address] 11/10/2023 Con Sung [facility] [address], [place] [address] 11/11/2023 Asiya Evans [address] [address] 11/17/2023 Asiya Evans [address] [address] 11/26/2023 Ludivina Quan [address] [place] [address] 07/13/2024 Ulises Julian Bipolar 2 disorder F31.[address] [address] 07/25/2024 Ulises Julian Bipolar 2 disorder F31.[address] [address] 09/28/2024 Asiya Nathan Low vitamin D level E55.9 and Morbid (severe) obesity due to excess calories E66.[address] [address] 10/04/2024 Con Sung Assessments Encounter Date Diagnosis (ICD Code) Assessment Notes Treatment Notes Treatment Clinical Notes Section Notes 10/03/2024 Major depressive disorder (ICD-10 - F32.9) 09/28/2024 Morbid (severe) obesity due to excess calories (ICD-10 - E66.01) 09/28/2024 Low vitamin D level (ICD-10 - E55.9) 09/27/2024 Hypertension (ICD-10 - I10) WILL OBTAIN LABS TODAY. CONTINUE LISINOPRIL/HCTZ, BP WELL CONTROLLED Patient was instructed to take meds as directed and warned of all consequences of high blood pressure including but not limited to STROKE, ME, Renal failure. Patient was warned if any headache, visual changes, neurological symptoms or any concerns immediately go to ER or call 911 . Patient advised to check his b/p randomely , keep an eye of blood pressure. Provided script for BP machine if needed. May do b/p log and may bring log next visit . Advised to cut down sodium intake. Do not add salt to meals. Advised to exercise if not contra-indicated. 30m daily 5 x weekly. Patient advised to do labs as ordered. 09/27/2024 Type 2 diabetes mellitus (ICD-10 - E11.9) STOP METFORMIN WILL OBTAIN LABS TODAY IF NOT CONTROLLED, WILL ATTEMPT TO START GLP-1 FOR DM AND WEIGHTLOSS MANAGEMENT (DULAGLUTIDE OR SEMAGLUTIDE) DEPENDS ON INSURANCE 08/02/2024 Bipolar 2 disorder (ICD-10 - F31.81) Client not using trazodone - discontinued. No other tx plan changes as has been doing well. 07/25/2024 Bipolar 2 disorder (ICD-10 - F31.81) 07/13/2024 Bipolar 2 disorder (ICD-10 - F31.81) 09/22/2024 Bipolar 2 disorder (ICD-10 - F31.81) Client doing well, no tx plan changes needed at this time. 05/05/2024 Bipolar 2 disorder (ICD-10 - F31.81) Client agreeable to trial of lurasidone for mood stability. Trazodone and hydroxyzine refilled. Encouraged client to think about starting therapy. 02/03/2024 Bipolar 2 disorder (ICD-10 - F31.81) Start Caplyta 42mg once daily. Antipsychotics education - reviewed side effects which may include metabolic syndrome, movement disorders (EPS/extrapyramidal symptoms & TD/Tardive dyskinesia) - potentially permanent movement abnormalities, NMS/neuroleptic malignant syndrome (high fever, very rigid muscles, and rapid heartbeat - potentially fatal), sedation, and cardiac rhythm abnormalities. 11/26/2023 Bipolar 2 disorder (ICD-10 - F31.81) 11/26/2023 Nicotine dependence (ICD-10 - F17.200) 11/17/2023 Tinea cruris (ICD-10 - B35.6) 11/17/2023 Bipolar 2 disorder (ICD-10 - F31.81) 11/17/2023 Premature ejaculation (ICD-10 - F52.4) 11/26/2023 Cannabis abuse (ICD-10 - F12.10) 02/03/2024 Nicotine dependence (ICD-10 - F17.200) Advised patient to quit smoking 08/02/2024 CYNDI (generalized anxiety disorder) (ICD-10 - F41.1) Client not using trazodone - discontinued. No other tx plan changes as has been doing well. 05/05/2024 Generalized anxiety disorder (ICD-10 - F41.1) Client agreeable to trial of lurasidone for mood stability. Trazodone and hydroxyzine refilled. Encouraged client to think about starting therapy. 10/03/2024 Generalized anxiety disorder (ICD-10 - F41.1) 09/22/2024 CYNDI (generalized anxiety disorder) (ICD-10 - F41.1) Client doing well, no tx plan changes needed at this time. 09/27/2024 Nicotine dependence, unspecified, uncomplicated (ICD-10 - F17.200) OFFERED SMOKING CESSATION REPORTS HAVE DECREASED DAILY CIGARETTE USE 09/27/2024 Low vitamin D level (ICD-10 - E55.9) WILL OBTAIN LABS TODAY. IF LOW will start vitamin D supplement. Take one capsule once weekly for 8 weeks. Increase vitamin D intake of food, milk, fish, mushroom to name a few. Will repeat vitamin D level after treatment. 11/26/2023 CYNDI (generalized anxiety disorder) (ICD-10 - F41.1) 02/03/2024 Cannabis abuse (ICD-10 - F12.10) Educated client that the psychoactive components in marijuana can interact with prescribed psychiatric medications, and cessation is best practice and decreased use at the very least is advisable. 11/26/2023 Mild depression (ICD-10 - F32.0) 02/03/2024 CYNDI (generalized anxiety disorder) (ICD-10 - F41.1) Continue Vistaril, pt reports effectiveness Encouraged therapy, will send referall. Practice deep breathing daily Practice mindfulness techniques Practice relaxation techniques 09/27/2024 Exposure to potential infection (ICD-10 - Z20.9) 09/27/2024 Over weight (ICD-10 - E66.3) START GLP-1 FOR DM AND WEIGHTLOSS MANAGEMENT (DULAGLUTIDE OR SEMAGLUTIDE) DEPENDS ON INSURANCE 02/03/2024 Mild depression (ICD-10 - F32.0) Medications as prescribed. Discussed possible SEs, risks, and benefits. Reviewed black box warning for possible SI. Continue with regular exercise and a healthy, balanced diet. Follow up with the counselor as discussed. Pt advised to call or seek immediate medical attention if they develop any new or worsening symptoms. Follow up in 1 month for recheck, sooner if needed. Patient/caregiver instructed to call or seek medical attention if any new or worsening symptoms. Red flag symptoms/indications for trip to ER reviewed. Patient/caregiver voiced understanding and agreement with the above. 02/03/2024 Medication monitoring encounter (ICD-10 - Z51.81) Labs ordered. 09/27/2024 Deviated septum (ICD-10 - J34.2) UNABLE TO TOLERATE CPAP, PER SLEEP MEDICINE BOTH NOSTRILS ARE COMPLETELY BLOCKED. PATIENT IS MOUTH BREATHER. WILL REFER TO ENT FOR EVALUATION AND TREATMENT 09/27/2024 Obstructive sleep apnea (ICD-10 - G47.33) FOLLOW UP WITH SLEEP MEDICINE (DR FERNANDO) FOR POSSIBLE READJUSTMENT OF CPAP SETTINGS. PT REPORTS UNABLE TO TOLERATE CURRENT SETTINGS 02/03/2024 Exposure to communicable disease (ICD-10 - Z20.9) Hepatits panel HIV testing ordered 11/26/2023 Other Patient was edu cated on diagnosis and symptoms. Discussed the treatment plan, patient is agreeable and accepting of treatment plan. Patient denies further questions or concerns currently. Discussed sleep hygiene and caffeine intake. Encouraged to improve diet, get regular exercise, daily relaxation, and work on managing stress levels.Return to clinic 4 weeks.Labs are up to date 01/2023. Encouraged counseling.The Patient/Guardian is aware of the need to contact the office or return for an earlier appointment if any problems or concerns arise. May also contact the 24-hour crisis hotline ([facility]), refer to the closest emergency room or call 911 if new symptoms arise of existing symptoms worsen; the Patient/Guardian is aware that this would apply to symptoms such as: suicidal ideation, homicidal ideation, high risk behaviors, manic symptoms, psychotic symptoms, physical symptoms, or any other symptoms that may be dangerous to self or others.Greater than 50% of time spent on coordination and counseling where psychopharmacology as well as psychotherapeutic interventions were discussed along with review of treatments in the past.Patient/Francis n was educated about treatments including benefits and risks, alternatives, potential medication side effects, black box warning, and risks of failure if not treated. The Patient/Guardian asked appropriate questions, appeared to understand the answers, and decided to accept the treatment and continue being followed.Discussed the importance of compliance with medications due to the risk of relapse of symptoms.Discussed the risks of taking psychotropic medication when combined with substance use/abuse and/or drinking alcohol. 02/03/2024 Other Patient was edu cated on diagnosis and symptoms. Discussed the treatment plan, patient is agreeable and accepting of treatment plan. Patient denies further questions or concerns currently. Discussed sleep hygiene and caffeine intake. Encouraged to improve diet, get regular exercise, daily relaxation, and work on managing stress levels.Return to clinic 2 weeks.Labs ordered today.Encouraged counseling, referral sent.The Patient/Guardian is aware of the need to contact the office or return for an earlier appointment if any problems or concerns arise. May also contact the 24-hour crisis hotline ([facility]), refer to the closest emergency room or call 911 if new symptoms arise of existing symptoms worsen; the Patient/Guardian is aware that this would apply to symptoms such as: suicidal ideation, homicidal ideation, high risk behaviors, manic symptoms, psychotic symptoms, physical symptoms, or any other symptoms that may be dangerous to self or others.Greater than 50% of time spent on coordination and counseling where psychopharmacology as well as psychotherapeutic interventions were discussed along with review of treatments in the past.Patient/Francis n was educated about treatments including benefits and risks, alternatives, potential medication side effects, black box warning, and risks of failure if not treated. The Patient/Guardian asked appropriate questions, appeared to understand the answers, and decided to accept the treatment and continue being followed.Discussed the importance of compliance with medications due to the risk of relapse of symptoms.Discussed the risks of taking psychotropic medication when combined with substance use/abuse and/or drinking alcohol. 05/05/2024 Other Discussed sleep hygiene and caffeine intake with encouragement to limit electronic devices an hour before bed and to limit caffeine after 3:00pm. Exercise benefits for mood and health discussed. Psychoeducation regarding psychiatric illness provided. Client was educated about risks and benefits of medication, alternatives to medication, off label uses of medication, suicidal ideation with SSRIs, self-administration and compliance with medication along with how to safely store medication. Verbal informed consent obtained. Client agrees to return sooner if symptoms worsen or if suicidal or homicidal ideations occur. Client has the phone number to the 24-hour crisis line at [facility]. Questions addressed. Client verbalized understanding of all information and is agreeable to treatment plan. Client agreeable to trial of lurasidone for mood stability. Trazodone and hydroxyzine refilled. Encouraged client to think about starting therapy. 08/02/2024 Other Discussed sleep hygiene and caffeine intake with encouragement to limit electronic devices an hour before bed and to limit caffeine after 3:00pm. Exercise benefits for mood and health discussed. Psychoeducation regarding psychiatric illness provided. Client was educated about risks and benefits of medication, alternatives to medication, off label uses of medication, suicidal ideation with SSRIs, self-administration and compliance with medication along with how to safely store medication. Verbal informed consent obtained. Client agrees to return sooner if symptoms worsen or if suicidal or homicidal ideations occur. Client has the phone number to the 24-hour crisis line at [facility]. Questions addressed. Client verbalized understanding of all information and is agreeable to treatment plan. Client not using trazodone - discontinued. No other tx plan changes as has been doing well. 09/22/2024 Other Discussed sleep hygiene and caffeine intake with encouragement to limit electronic devices an hour before bed and to limit caffeine after 3:00pm. Exercise benefits for mood and health discussed. Psychoeducation regarding psychiatric illness provided. Client was educated about risks and benefits of medication, alternatives to medication, off label uses of medication, suicidal ideation with SSRIs, self-administration and compliance with medication along with how to safely store medication. Verbal informed consent obtained. Client agrees to return sooner if symptoms worsen or if suicidal or homicidal ideations occur. Client has the phone number to the 24-hour crisis line at [facility]. Questions addressed. Client verbalized understanding of all information and is agreeable to treatment plan. Client doing well, no tx plan changes needed at this time. 09/27/2024 Other Complications of uncontrolled Diabetes reviewed including: renal, cardiovascular, neurological and opthalmological. Importance of lifestyle changes including low CHO diet and exercise as tolerated. Importance of BS monitoring discussed. Target BS 90-130 and to call if persistently <70 or >300. Plan Of Treatment No Information Insurance Providers Payer Name Payer Address Payer Phone Subscriber Number Group Number Insured Name Patient Relationship to Insured Coverage Start Date Coverage End Date [facility] Attn Claims Department [address] [place] [phone] [id number] Kelvin Hung Self - patient is the insured 2 [email or web address] [address] [place] [address] [id number] Kelvin Hung Self - patient is the insured [address] [facility] Attn Claims Department [address] [place] [address] [id number] Kelvin Hung Self - patient is the insured 2 [facility] Att[facility] Claims Department [address] [place] [phone] [id number] Abhilash, Kelvin Self - patient is the insured 5 Medications Administered Medication Instructions Date of Administration Dosage Notes Testosterone 07/22/2022 200 mg Pt tolerated injection well. Testosterone 08/05/2022 200 mg pt tolerated injection well. Pt education and teaching on testerone self administration. Medical (General) History Medical History History ICD Code Depression chest pains bipolar disorder anxiety IBS Diverticulitis Surgical History Surgery Date(Month/Year) tonsillectomy as a kid rt and lft knee 2010 Hospitalization History Reason Date(Month/Year) sleep study x2
[2024-11-01 20:57] LABS: Basophils Absolute Auto 0.1 K/mm3 (0.0-0.1); Basophils Percent Auto 1.1 % (0.2-1.2); Eosinophils Absolute Auto 0.9 K/mm3 (0-0.3); Hematocrit 47.4 % (42.0-52.0); Hemoglobin 15.8 g/dL (14.0-18.0); Immature Granulocyte Absolute 0.06 K/mm3 (0.00-0.031); Immature Granulocyte Percent A 0.5 % (0-0.5); Lymphocytes Absolute Auto 3.61 K/mm3 (0.9-3.2); Lymphocytes Percent Auto 29.7 % (18.3-44.2); Mean Corpuscular HGB Conc 33.3 g/dl (32-36); Mean Corpuscular Hemoglobin 28.4 pg (26-34); Mean Corpuscular Volume 85.3 fl (80-100); Mean Platelet Volume 11.1 fl (7.4-10.4); Monocytes Percent Auto 7.8 % (2.6-8.5); Neutrophils Absolute Auto 6.6 K/mm3 (1.3-6.7); Neutrophils Percent Auto 53.9 % (45.5-73.1); Platelet Count Result 203 k/mm3 (150-375); Red Blood Count 5.56 M/mm3 (4.6-6.20); Red Cell Distribution Width 12.5 % (11.5-14.5); White Blood Count 12.2 K/mm3 (4.5-10.0)
[2024-11-01 21:05] LABS: Alanine Aminotransferase 36 U/L (6-50); Albumin Level 4.7 g/dL (3.5-5.1); Alkaline Phosphatase 64 U/L (38-126); Anion Gap 10 mmol/L (4-12); Aspartate Amino Transferase 36 U/L (17-59); Bilirubin,Total 0.3 mg/dL (0.2-1.3); Blood Urea Nitrogen 14 mg/dL (9-20); Calcium 9.5 mg/dL (8.4-10.2); Carbon Dioxide 28 mmol/L (22-30); Chloride 97 mmol/L (98-107); Estimated CRCL calculation 172 ml/min; Estimated Glomerular Filt Rate > 60; Glucose 141 mg/dL (65-110); Potassium 3.8 mmol/L (3.4-5.0); Sodium 135 mmol/L (137-145)
[2024-11-01 21:07] LABS: Partial Thromboplastin Time 27.6 Seconds (22.3-36.8)
--- OUTSIDE RECORDS SUMMARY | 2024-11-01 21:58 | XMS_ITS | Continuity of Care Document ---
Author Organization [facility] Address [address] [address] Phone Care Team Providers Care Trimming Caser Name Role Phone Ayad Simons MD Unavailable [...] Diagnoses Date Provider Providers Copied on Encounter [facility], [address] [facility] [facility] [address] [place], [address], tel:[phone] [facility] No Information 8 Ronak Lion. [address] [employer] [place], [address] , [place]. tel:[phone] OFFICE/OUTPA TIENT VISIT, EST [facility], [address] [place], [place], [address], [place] tel:[phone] [facility] HTn (chief complaint) DM (chief complaint) sleep apnea1 (chief complaint) work1 (chief complaint) Type 2 diabetes mellitus without complicationsSleep apneaEssential (primary) hypertensionEncount er for STD screening 8 Ronak Munson [address], [address], [place], [place], [address] , [place]. [phone] OFFICE/OUTPA TIENT VISIT, EST [facility], [address], [place], [place], [address], [place] tel:[phone] [facility] DM (chief complaint) LFT (chief complaint) HLP (chief complaint) HTN (chief complaint) Body mass index (BMI) 45.0-49.9, adultFatty liverEssential (primary) hypertensionType 2 diabetes mellitus without complicationsHyperl ipidemia 8 Ronak Munson [address], [address], [place], [place], [address] , [place]. tel:[phone] Referring Provider: Benjy Bauer [address], [place], [place], [address]. tel:[phone] PREV VISIT, EST, AGE 18-39 [facility], [address], [place], [place], [address], [place] tel:[phone] [facility] PHysical (chief complaint) Encntr for general adult medical exam w/o abnormal findings 8 Ronak Munson [address], [address], [place], [place], [address] , [place]. tel:[phone] Referring Provider: Benjy Bauer [address], [place], [place], [address]. tel:[phone] OFFICE/OUTPA TIENT VISIT, EST [facility], [address], [place], [place], [address], [place] tel:[phone] [facility] sleep apnea1 (chief complaint) right axillary (chief complaint) obesity1 (chief complaint) fatty liver1 (chief complaint) Sleep apneaLymphadenopath yBody mass index (BMI) 45.0-49.9, adultFatty liver Apr-0 7 Ronak Lion. [address], [address], [place], [place], [address] , [place]. tel:[phone] Referring Provider: Benjy Bauer [address], [place], [place], [address]. tel:[phone] OFFICE/OUTPA TIENT VISIT, EST [facility], [address], [place], [place], [address], [place] tel:[phone] [facility] axillary lymph1 (chief complaint) obesity1 (chief complaint) shoulder pain1 (chief complaint) LymphadenopathyPain in left shoulderBody mass index (BMI) 45.0-49.9, adultSleep apnea Feb-2 7 Ronak Munson [address], [address], [place], [place], [address] , [place]. tel:[phone] Referring Provider: Benjy Bauer [address], [place], [place], [address]. tel:[phone] PREV VISIT, EST, AGE 18-39 [facility], [address], [place], [place], [address], [place] tel:[phone] [facility] PHysical (chief complaint) Encounter for general adult medical exam w abnormal findingsFatty liverPain in left shoulderAbnormal weight gain 7 Ronak Munson [address], [address], [place], [place], [address] , [place]. tel:[phone] Referring Provider: Benjy Bauer [address], [place], [place], [address]. tel:[phone] OFFICE/OUTPA TIENT VISIT, EST [facility], [address], [place], [place], [address], [place] tel:[phone] [facility] HTN (chief complaint) anxiety1 (chief complaint) Essential (primary) hypertensionGeneral ized Anxiety Disorder 6 Ronak Lion. [address], [address], [place], [place], [address] , [place]. tel: [phone] Referring Provider: Ayad Simons, [address], [place], [place], [address]. tel:[phone] OFFICE/OUTPA TIENT VISIT, [facility], [address], [place], [place], [address], [place] tel:[phone] [facility] melena1 (chief complaint) anxiety1 (chief complaint) GastroparesisOccult blood in stoolGeneralized Anxiety Disorder 6 Ronak Lion. [address], [address], [place], [place], [address] , [place]. tel:[phone] Referring Provider: Benjy Bauer [address], [place], [place], [address]. tel:[phone] OFFICE/OUTPA TIENT VISIT, [facility], [address], [place], [place], [address], [place] tel:[phone] [facility] anxiety1 (chief complaint) stomach (chief complaint) GERD w/o esophagitisGastropa resisGeneralized Anxiety Disorder 6 Ronak Lion. [address], [address], [place], [place], [address] , [place]. tel:[phone] Referring Provider: Benjy Bauer [address], [place], [place], [address]. tel:[phone] OFFICE/OUTPA TIENT VISIT, [facility], [address], [place], [place], [address], [place] tel:[phone] [facility] abd pain (chief complaint) anxiety1 (chief complaint) Occult blood in stoolGastroparesisG eneralized Anxiety Disorder 6 Ronak Lion. [address], [address], [place], [place], [address] , [place]. tel:[phone] Referring Provider: Ayad Simons [address], [place], [place], [address]. tel:[phone] OFFICE/OUTPA TIENT VISIT, [facility], [address], [place], [place], [address], [place] tel:[phone] [facility] anxiety1 (chief complaint) GERD1 (chief complaint) GERD w/o esophagitisLiver diseaseGeneralized Anxiety Disorder 0 6 Ronak Lion. [address], [address], [place], [place], [address] , [place]. tel:[phone] Referring Provider: Ayad Simons [address], [place], [place], [address]. tel:[phone] OFFICE/OUTPA TIENT VISIT, [facility], [address], [place], [place], [address], [place] tel:[phone] [facility] GERD1 (chief complaint) liver (chief complaint) anxiety1 (chief complaint) GERD w/o esophagitisLiver diseaseGeneralized anxiety disorder 6 Ronak Lion. [address], [place], [place], [address] , [place]. tel:[phone] Referring Provider: Benjy Bauer [address], [place], [place], [address]. tel:[phone] OFFICE/OUTPA TIENT VISIT, [facility], [address], [place], [place], [address], [place] tel:[phone] [facility] glycemia1 (chief complaint) LFT (chief complaint) GERD1 (chief complaint) anxiety1 (chief complaint) HyperglycemiaLiver diseaseGERD w/o esophagitisGenerali zed Anxiety Disorder 6 Ronak Lion. [address], [place], [place], [address] , [place]. tel:[phone] Referring Provider: Benjy Bauer [address], [place], [place], [address]. tel:[phone] PREV VISIT, NEW, AGE 18-39 [facility], [address], [place], [place], [address], [place] tel:[phone] [facility] PHysical (chief complaint) Encntr for general adult medical exam w/o abnormal findings 6 Ronak Lion. [address], [address], [place], [place], [address] , [place]. tel:[phone] Referring Provider: Ayad Simons, [address], [place], [place], [address]. tel:[phone] Family History Family Member Type Diagnosis Age At Onset Father Problem (finding) Diabetes mellitus type 2 Mother Problem (finding) RA Father Problem (finding) Hypertension Brother Problem (finding) Alive and well Payers Payer name Insurance type Covered republican ID Authoriza tion(s) No Information Social History [...] Lopez [address] [place], [phone] Ordered: Referrals: Juan Lopez. Evaluate and treat ordered Referral Ordered: Physical Therapy (related to Pain in left shoulder) ordered Referral Ordered: Juan Mixon (related to Pain in left shoulder) ordered Referral Ordered: SHOULDER XRAY Left ordered Referral Referred To: Juan Mixon [address] [place], [phone] Ordered: Referrals: Juan Mixon. Evaluate and treat [...] for it sleep apnea1 Pt has sleep statistics manager ea symptoms Pt snores and he wakes [...] or headache sleep apnea1 Pt has sleep statistics manager ea Pt is noncompliant with sleep study [...] Pt have some sample of dexilant from [facility] office which is helping his nauea, vomiting and gERD symptoms. Pt still has some dark stool intermittently Pt denies any abd pain. Pt also had gastric empty study done but I dont have result. When I called [facility] and they told me the order was given by [facility] so I could not get the result [...] Prescribed Instructions Date Instruction Additional Infor mation Special diet education Related t o Body mass index (BMI) 45.0-49.9, adult Increase physical activity. Rela yola to Type 2 diabetes mellitus without complications Prescribed dietary intake Relate d to Body mass index (BMI) 45.0-49.9, adult Special diet education Related t o Body mass index (BMI) 45.0-49.9, adult Increase activity. Related to En cntr for general adult medical exam w/o abnormal findings Prescribed Activity and Exercise Education Related to Dietary Surveillance and Counseling Prescribed Diet Educ ation/Lifestyle Education Regarding Diet Related to Dietary Surveillance and Counseling Increase physical activity Relat ed to Sleep apnea Weight management Related to Sle ep apnea Prescribed Activity and Exercise Education Related to Dietary Surveillance and Counseling Prescribed Diet Educ ation/Lifestyle Education Regarding Diet Related to Dietary Surveillance and Counseling Increase physical activity Relat ed to Lymphadenopathy Weight management Related to Lym phadenopathy Prescribed Activity and Exercise Education Related to [...] Diet Related to Dietary Surveillance and Counseling Assessments Type Assessment Date No Information
--- OUTSIDE RECORDS SUMMARY | 2024-11-01 21:58 | XMS_ITS | Referral Summary ---
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
--- OUTSIDE RECORDS SUMMARY | 2024-11-01 21:58 | XMS_ITS | Clinical Summary ---
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
--- OUTSIDE RECORDS SUMMARY | 2024-11-01 21:58 | XMS_ITS | CONTINUITY OF CARE DOCUMENT ---
Author Name jose garcia Address Unknown Organization [facility] Address [address] [place] [address] Phone [phone] Care Team Providers Care Pit Supervisor Name Role Phone Claus Grove MD Unavailable INSURANCE PROVIDERS Payer name Policy type / Coverage type Manny red alliance party ID SELF PAY [id number]
--- OUTSIDE RECORDS SUMMARY | 2024-11-01 21:58 | XMS_ITS | Clinical Summary ---
Author Organization [facility] Address [address] [place] [address] Care Team Providers Care Recordings Librarian Name Role Phone Ayad Simons MD Primary Care Provider [phone] [facility],non-owned Affiliates and Associated Physician Practices is amultiple site organization consisting of ambulatory clinics and hospital sitesin [place], [place], [place]. This disclosure is being madepursuant to the Care Everywhere program and may not contain all information available regarding this patient. Last updated 18.[facility] Allergies Active Allergy Reactions Criticality Noted Date Comments Buspirone Swelling 10/21/2024 Medications * Be aware that medications may not be up to date on this document. Alwaysverify current medications with the patient. 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
--- NOTE | 2024-11-01 22:23 | ED.GENADULT ---
HPI - General Adult General Chief complaint: GI Bleed Stated complaint: rectal pain Time Seen by Provider: 11/01/24 21:39 History of Present Illness HPI narrative: This is a 29-year-old male with history of IBS and hemorrhoids presenting for rectal pain. Last 5 days he has been having pain when he has a bowel movement. He has noticed some blood on the toilet paper when he wipes. He has not taken any ewvy-sps-cvngowl medicine any treatment for hemorrhoids. No abdominal pain. Related Data Home Medications ?Medication ?Instructions ?Recorded ?Confirmed ?Last Taken ?Type metformin 500 mg tablet,extended 500 mg PO DAILY 01/10/20 01/10/20 Unknown History release 24 hr Allergies Allergy/AdvReac Type Severity Reaction Status Date / Time No Known Allergies Allergy Verified 08/31/22 08:20 [facility] Past Medical History Medical History Morbid obesity Gastritis Irritable bowel syndrome Surgical History Surgical History History of adenoidectomy History of endoscopy History of colonoscopy History of tonsillectomy History of knee surgery Bilateral Family History Family History Father Diabetes mellitus Hypertension Other Family history of allergic disorder Family history of malignant neoplasm Social History Social History Smoking status: Current every day smoker Alcohol intake: current Substance use: current Substance use type: marijuana Gender identity (if verbalized by the patient): Male Exam Narrative: APPEARANCE: No apparent distress. Head: atraumatic. EYES: EOMI, NOSE: Atraumatic NECK: Trachea midline RESPIRATORY: No increased rate of breathing CARDIOVASCULAR: RRR, ABDOMINAL: Obese, soft nontender no guarding rebound Rectal exam: No external hemorrhoids no blood on digital rectal exam MUSCULOSKELETAl: No obvious deformities NEURO: Alert. Moving 4/4 extremities SKIN:: Warm, dry. Normal color PSYCHIATRIC: Normal affect Course Vital Signs Vital signs: Vital Signs Temperature 98.9 F 11/01/24 20:01 Pulse Rate 106 H 11/01/24 20:01 Respiratory Rate 16 11/01/24 20:01 Blood Pressure 140/76 11/01/24 20:01 Pulse Oximetry 97 11/01/24 20:01 Oxygen Delivery Room Air 11/01/24 20:01 Temperature 98.9 F 11/01/24 20:01 Pulse Rate 106 H 11/01/24 20:01 Respiratory Rate 16 11/01/24 20:01 Blood Pressure 140/76 11/01/24 20:01 Pulse Oximetry 97 11/01/24 20:01 Oxygen Delivery Room Air 11/01/24 20:01 Medical Decision Making MDM Narrative Medical decision making narrative: -Course: 29-year-old male presenting with rectal pain and bleeding. Physical exam unremarkable. Patient has a history of IBS hemorrhoids diverticulosis. Likely hemorrhoids or diverticular bleed. Hemoglobin is 15.8. No abdominal tenderness. Patient will be discharged on treatment for hemorrhoids. He can follow-up with the GI doctor listed below. Given return precautions. -DDX includes but is not limited to: Hemorrhoids, diverticulosis, IBS, inflammatory bowel disease Vital Signs Vital Signs: Vital Signs Temperature 98.9 F 11/01/24 20:01 Pulse Rate 106 H 11/01/24 20:01 Respiratory Rate 16 11/01/24 20:01 Blood Pressure 140/76 11/01/24 20:01 Pulse Oximetry 97 11/01/24 20:01 Oxygen Delivery Room Air 11/01/24 20:01 Temperature 98.9 F 11/01/24 20:01 Pulse Rate 106 H 11/01/24 20:01 Respiratory Rate 16 11/01/24 20:01 Blood Pressure 140/76 11/01/24 20:01 Pulse Oximetry 97 11/01/24 20:01 Oxygen Delivery Room Air 11/01/24 20:01 Lab Data 11/01/24 20:38 11/01/24 20:38 Labs: Lab Results 11/01/24 Range/Units 20:38 WBC 12.2 H (4.5-10.0) K/mm3 RBC 5.56 (4.6-6.20) M/mm3 Hgb 15.8 (14.0-18.0) g/dL Hct 47.4 (42.0-52.0) % MCV 85.3 (80-100) fl MCH 28.4 (26-34) pg MCHC 33.3 (32-36) g/dl RDW 12.5 (11.5-14.5) % Plt Count 203 (150-375) k/mm3 MPV 11.1 H (7.4-10.4) fl Immature Gran % (Auto) 0.5 (0-0.5) % Neut % (Auto) 53.9 (45.5-73.1) % Lymph % (Auto) 29.7 (18.3-44.2) % Doniphan % (Auto) 7.8 (2.6-8.5) % Eos % (Auto) 7.0 H (0-4.4) % Baso % (Auto) 1.1 (0.2-1.2) % Lymph # (Auto) 3.61 H (0.9-3.2) K/mm3 Doniphan # (Auto) 1.0 H (0.1-0.6) K/mm3 Eos # (Auto) 0.9 H (0-0.3) K/mm3 Baso # (Auto) 0.1 (0.0-0.1) K/mm3 Abs Immat Gran (auto) 0.06 H (0.00-0.031) K/mm3 Absolute Neuts (auto) 6.6 (1.3-6.7) K/mm3 Absolute Nucleated RBC 0.000 (0.0-0.012) K/mm3 Nucleated RBC % 0.0 (0.0-0.2) % PT 13.0 (11.1-14.7) Seconds INR 1.0 APTT 27.6 (22.3-36.8) Seconds Sodium 135 L (137-145) mmol/L Potassium 3.8 (3.4-5.0) mmol/L Chloride 97 L (98-107) mmol/L Carbon Dioxide 28 (22-30) mmol/L Anion Gap 10 (4-12) mmol/L BUN 14 (9-20) mg/dL Creatinine 0.88 (0.7-1.3) mg/dL Estim Creat Clear Calc 172 ml/min Estimated GFR > 60 (59 - ) Glucose 141 H (65-110) mg/dL Calcium 9.5 (8.4-10.2) mg/dL Total Bilirubin 0.3 (0.2-1.3) mg/dL AST 36 (17-59) U/L ALT 36 (6-50) U/L Alkaline Phosphatase 64 (38-126) U/L Total Protein 8.0 (6.3-8.2) g/dL Albumin 4.7 (3.5-5.1) g/dL Blood Type O Positive Antibody Screen Negative Discharge Plan Discharge Clinical Impression: Acute hemorrhoid Patient Disposition: Home Condition: Stable Instructions: Antibiotic Form, Hemorrhoids (ED) Additional Instructions: You were seen in the emergency department for rectal bleeding. This is likely from a hemorrhoid. Please use preparation H, Sitz baths and stool softeners as needed. Please follow-up with the GI doctor listed below. Return if you develop any new or worsening symptoms such as weakness, lightheadedness, massive bleeding or severe pain. Patient Language: Macedonian Prescriptions: New hydrocortisone [Anusol-HC] 2.5 % cream with perineal applicator 1 applic RECTAL DAILY PRN (Reason: hemorrhoids) Qty: 30 0RF docusate calcium 240 mg capsule 240 mg PO DAILY Qty: 30 0RF No Action metformin 500 mg tablet extended release 24 hr 500 mg PO DAILY Follow-up/Referrals: Scot Gannon MD [Physician] - 1 Week (Multiple GI issues.) UNKNOWN,DOCTOR [Primary Care Provider] -
[2024-11-01 22:38] VITALS: BP 136/72; PULSE 99; RESP 17; TEMP 37.1; O2SAT 97
== END 2024-11-01 22:40 | disposition home or self-care (01) ==
PROVIDERS: Physician Assistant; Emergency Provider Emergency Medicine
DX: K64.9 Unspecified hemorrhoids (principal); E66.9 Obesity, unspecified; Z68.42 Body mass index [BMI] 45.0-49.9, adult
CPT/HCPCS: 36415; 80053; 85025; 85610; 85730; 86850; 86900; 86901; 99283

== ENCOUNTER 2025-02-02 10:31 | Emergency (ER) | payer OTHER, SELFPAY ==
[2025-02-02 10:45] VITALS: BP 139/90; PULSE 99; RESP 16; TEMP 36.1; O2SAT 98
[2025-02-02 11:05] LABS: EDSTREPNEGPOS1 Negative (Negative)
--- NOTE | 2025-02-02 11:28 | ED_ITS ---
HPI - Dental/Oral General Chief complaint: Dental/Oral Stated complaint: DENTAL PAIN/SORE THROAT Time Seen by Provider: 02/02/25 11:10 Source: patient and RN notes reviewed Mode of arrival: ambulatory Limitations: no limitations History of Present Illness HPI Narrative: 29-year-old male presents Express Care complaining left upper dental pain started a few days ago a sore throat that started this morning. Patient denies any upper respiratory symptoms, cough, fevers body aches, chills, nausea vomiting, chest pain, difficulty breathing or any other symptoms. Patient said he has a scheduled root canal with his dentist for previous dental problems. Patient denies any redness or swelling to his mouth. Patient reports pain with swelling. Patient is not taking help with symptoms. Related Data Home Medications ?Medication ?Instructions ?Recorded ?Confirmed ?Last Taken ?Type lisinopril 20 mg tablet 20 mg PO DAILY 11/29/24 02/02/25 Unknown History lurasidone 20 mg tablet (Latuda) 20 mg PO DAILY 11/29/24 02/02/25 Unknown History hydroxyzine pamoate 50 mg capsule mg 02/02/25 Unknown History Allergies Allergy/AdvReac Type Severity Reaction Status Date / Time No Known Allergies Allergy Verified 02/02/25 10:32 Review of Systems Review of Systems: CONSTITUTIONAL: Denies fever, chills, or sweats. EYES: Denies visual changes, redness, or discharge. ENT: Denies rhinorrhea, congestion, or otalgia. Positive for sore throat. MOUTH: Positive for dental pain. CARDIOVASCULAR: Denies chest pain, palpitations, or edema. RESPIRATORY: Denies cough or dyspnea. GASTROINTESTINAL: Denies abdominal pain, nausea, vomiting, or diarrhea. GENITOURINARY: Denies dysuria or hematuria. SKIN: Denies rash or itching. MUSCULOSKELETAL: Denies back pain, joint pain, or myalgia. NEUROLOGIC: Denies headache, numbness, or weakness. PSYCHIATRIC: Denies anxiety or depression. All other systems reviewed are negative, except as documented in HPI. [facility] Past Medical History Medical History Morbid obesity Gastritis Irritable bowel syndrome Surgical History Surgical History History of adenoidectomy History of endoscopy History of colonoscopy History of tonsillectomy History of knee surgery Bilateral Family History Family History Father Diabetes mellitus Hypertension Other Family history of allergic disorder Family history of malignant neoplasm Social History Social History Smoking status: Current every day smoker Alcohol intake: current Substance use: current Substance use type: marijuana Gender identity (if verbalized by the patient): Male Comments At the time of my signature, I reviewed and agree with the nursing past medical, surgical, social, and family history. There is no relevant family history pertinent to the patient complaint. Exam Narrative: GENERAL: This is a well-nourished, well-developed adult, in no apparent distress. They are non ill-appearing, nontoxic appearing. Patient is morbidly obese. Physical exam limited due to large body habitus. HEAD: normocephalic, atraumatic. EYES: Sclera clear/white. Conjunctiva normal. Vision is grossly intact. Extraocular movements intact EARS: External ears normal, auditory canals clear and without drainage, TMs normal without perforation. Hearing grossly intact. NOSE: External nose normal with no obvious nasal discharge, nasal turbinates without redness, no rhinorrhea. THROAT: Mucous membranes moist, posterior pharynx erythemic without swelling. Papulovesicular lesions present to patient's soft palate and uvula. Uvula midline. No other suspicious lesions identified. OROPHARYNX: Gross tooth decay present. No missing teeth. No gingivitis. No redness or swelling. Tongue is Midline. No pain or swelling under the tongue. No area of fluctuance, no exudate. No other suspicious lesions identified. NECK: Neck supple, non-tender without lymphadenopathy, masses or thyromegaly. CARDIOVASCULAR: Regular rate and rhythm without murmurs, gallops, or rubs. RESPIRATORY: Clear to auscultation. Breath sounds equal bilaterally. No wheezes, rales, or rhonchi. SKIN: warm, Dry, intact with no suspicious lesions or rash, good texture and turgor. NEURO: awake, alert, and oriented to person, place and time. There were no obvious focal neurologic abnormalities. EXTREMITIES: No joint tenderness, effusion, or edema noted. Course Course Emergency Course: Portions of this record may have been created with voice recognition software Level of Care: Express Care Visit Vital Signs Vital signs: Vital Signs Temperature 97 F L 02/02/25 10:45 Pulse Rate 99 02/02/25 10:45 Respiratory Rate 16 02/02/25 10:45 Blood Pressure 139/90 02/02/25 10:45 Pulse Oximetry 98 02/02/25 10:45 Temperature 97 F L 02/02/25 10:45 Pulse Rate 99 02/02/25 10:45 Respiratory Rate 16 02/02/25 10:45 Blood Pressure 139/90 02/02/25 10:45 Pulse Oximetry 98 02/02/25 10:45 Reviewed MDM - Dental/Oral MDM Narrative Medical decision making narrative: Rapid strep negative. Throat cultures pending. Patient likely as herpangina. No evidence of dental infection or dental abscess. Discussed physical exam findings. Advised supportive measures and signs/symptoms to go to the ER. Pt is appropriate for outpt treatment and f/u. Differential Diagnosis Differential diagnosis: Likely toothache, dental abscess and other (Pharyngitis, [id number], viral infection) Lab Data Attestation: I reviewed the patient's lab results. Labs: Lab Results 02/02/25 Range/Units 11:03 POC Grp A Strep Screen Negative (Negative) Critical Care Time Critical Care Time Critical Care Time: No Discharge Plan Discharge Clinical Impression: Herpangina Patient Disposition: Home Condition: Stable Instructions: Antibiotic Form, Hand, Foot, and Mouth Disease (ED) Additional Instructions: Your rapid strep swab was negative today at [facility]. You will be notified in a few days if the culture comes back positive for strep, and appropriate antibiotics will be called in for you at that time. Your symptoms are likely due to a viral illness, which is not treated with antibiotics. It is also likely you have a strain of [id number] virus. This condition is normally self-limiting and resolved within 7-10 days. You are most contagious for the 1s t week of the illness. Wash your hands thoroughly and cover your cough. Take Tylenol or ibuprofen for as needed fever or pain. Follow instructions on the bottle. Rest and stay hydrated. Follow up with your PCP in 3-5 days if symptoms are not improving. Go to the ER immediately if you develop difficulty breathing, unable to eat my concerns of dehydration, or difficulty swallowing Patient Language: Kyrgyz Prescriptions: No Action hydroxyzine pamoate 50 mg capsule lisinopril 20 mg tablet 20 mg PO DAILY lurasidone [Latuda] 20 mg tablet 20 mg PO DAILY Rx Instructions: must administer with food (at least 350 calories) Follow-up/Referrals: UNKNOWN,DOCTOR [Primary Care Provider] - Time of Disposition: 11:21
== END 2025-02-02 11:22 | disposition home or self-care (01) ==
DX: B08.5 Enteroviral vesicular pharyngitis (principal); F17.200 Nicotine dependence, unspecified, uncomplicated; F12.90 Cannabis use, unspecified, uncomplicated; E66.01 Morbid (severe) obesity due to excess calories; Z68.43 Body mass index [BMI] 50.0-59.9, adult
CPT/HCPCS: 87081; 87880; 99213; G0463

== ENCOUNTER 2025-03-25 18:32 | Emergency (ER) | payer OTHER, SELFPAY ==
--- NOTE | 2025-03-25 18:45 | ED_ITS ---
HPI - Nausea/Vomiting/Diarrhea General Chief complaint: Nausea/Vomiting/Diarrhea Stated complaint: IBS/NEEDS WORK NOTE Time Seen by Provider: 03/25/25 18:45 Source: patient Mode of arrival: ambulatory Limitations: no limitations History of Present Illness HPI Narrative: Bolivar is a 29-year-old male patient presenting to the clinic today with complaints of IBS flare. History of mixed IBS. He reports he vomited a work and they sent him home he is needing a note to return to work. He denies any fevers, chills, body aches. Is complaining of some generalized abdominal discomfort. Has only vomited 1 time, states he does have occasional nausea. Related Data Home Medications ?Medication ?Instructions ?Recorded ?Confirmed ?Last Taken ?Type lisinopril 20 mg tablet 20 mg PO DAILY 11/29/2410/14 Unknown History lurasidone 20 mg tablet (Latuda) 20 mg PO DAILY 03/25/25 Unknown History hydroxyzine pamoate 50 mg capsule mg 02/02/25 Unknown History Allergies Allergy/AdvReac Type Severity Reaction Status Date / Time No Known Allergies Allergy Verified 03/25/25 18:48 Review of Systems Review of Systems: Pertinent positives per HPI. Patient denies any fever, chills, rash, headache, visual changes, dizziness, cough, runny nose, sore throat, shortness of breath, chest pain, palpitations, diarrhea, constipation, or any urinary issues. [facility] Past Medical History Medical History Morbid obesity Gastritis Irritable bowel syndrome Surgical History Surgical History History of adenoidectomy History of endoscopy History of colonoscopy History of tonsillectomy History of knee surgery Bilateral Family History Family History Father Diabetes mellitus Hypertension Other Family history of allergic disorder Family history of malignant neoplasm Social History Social History Smoking status: Current every day smoker Alcohol intake: current Substance use: current Substance use type: marijuana Gender identity (if verbalized by the patient): Male Comments At the time of my signature, I reviewed and agree with the nursing past medical, surgical, social, and family history. There is no relevant family history pertinent to the patient complaint. Exam Narrative: General: Well-developed, morbidly obese, in no apparent distress. Head: Normocephalic, atraumatic. Cardio: Regular rate and rhythm, s1 and s2 normal, no murmur appreciated. Resp: Clear to auscultation bilaterally, no rhonchi, rales, wheezing or rubs. Abdomen: Soft, pliable, bowel sounds present in all quadrants, generalized tender to palpation, no organomegly, no CVAT tenderness. Course Course Emergency Course: Portions of this record may have been created with voice recognition software. Level of Care: Express Care Visit Vital Signs Vital signs: Vital Signs Temperature 36.6 C 03/25/25 18:49 Pulse Rate 115 H 03/25/25 18:49 Respiratory Rate 16 03/25/25 18:49 Blood Pressure 129/83 03/25/25 18:49 Pulse Oximetry 98 03/25/25 18:49 Temperature 36.6 C 03/25/25 18:49 Pulse Rate 115 H 03/25/25 18:49 Respiratory Rate 16 03/25/25 18:49 Blood Pressure 129/83 03/25/25 18:49 Pulse Oximetry 98 03/25/25 18:49 Vital signs reviewed MDM - Nausea/Vomiting/Diarrhea MDM Narrative Medical decision making narrative: At the time of visit patient is resting comfortably on the exam table. Patient appears to be nontoxic. Complaints of IBS flare. History of mixed IBS. He reports he vomited a work and they sent him home he is needing a note to return to work. He denies any fevers, chills, body aches. Is complaining of some generalized abdominal discomfort. Has only vomited 1 time, states he does have occasional nausea. On exam patient has generalized abdominal tenderness, bowel sounds are present all 4 quadrants, soft and pliable abdomen no CVAT tenderness, no organomegaly. Patient requesting work note. Plan: I suspect patient has IBS flare. Prescription for Zofran was sent to the pharmacy. Work note was given. Supportive measures were discussed with the patient and they voiced understanding discharge instructions and agrees to treatment plan. Return precautions reviewed Differential Diagnosis Differential diagnosis: Likely traveler's diarrhea, food poisoning, gastroenteritis, clostridium difficile infection, drug-induced nausea and vomiting and other (IBS) Discharge Plan Discharge Clinical Impression: Irritable bowel syndrome with both constipation and diarrhea Nausea & vomiting Qualifiers: Vomiting type: unspecified Qualified Code(s): R11.2 - Nausea with vomiting, unspecified Patient Disposition: Home Condition: Stable Instructions: Antibiotic Form, Acute Nausea and Vomiting (ED), Abdominal Pain (ED) Additional Instructions: Increase fluids and stay well hydrated Prescription for Zofran was sent to the pharmacy. Work note was given. Follow-up with your PCP 5-7 days if symptoms persist Patient Language: [place]an Prescriptions: New ondansetron 8 mg tablet,disintegrating 8 mg PO Q8H PRN (Reason: nausea and vomiting) 3 Days Qty: 10 0RF No Action hydroxyzine pamoate 50 mg capsule lisinopril 20 mg tablet 20 mg PO DAILY lurasidone [Latuda] 20 mg tablet 20 mg PO DAILY Rx Instructions: must administer with food (at least 350 calories) Follow-up/Referrals: PHYSICIAN,MECHANICAL PRODUCT DESIGN ENGINEER [Primary Care Provider, Internal Medicine] Stand Alone Forms: Work/School Release IP Time of Disposition: 19:03 Quality NIHSS Nursing Documentation ED NIHSS nursing documentation: reviewed/agree
[2025-03-25 18:49] VITALS: BP 129/83; PULSE 115; RESP 16; TEMP 36.6; O2SAT 98
== END 2025-03-25 19:15 | disposition home or self-care (01) ==
PROVIDERS: Emergency Provider Nurse Practitioner Family
DX: K58.1 Irritable bowel syndrome with constipation (principal); K58.0 Irritable bowel syndrome with diarrhea; R11.2 Nausea with vomiting, unspecified; F17.200 Nicotine dependence, unspecified, uncomplicated; E66.01 Morbid (severe) obesity due to excess calories; Z68.43 Body mass index [BMI] 50.0-59.9, adult
CPT/HCPCS: 99213; G0463

== ENCOUNTER 2025-05-03 13:42 | Emergency (ER) | payer OTHER, SELFPAY ==
--- NOTE | 2025-05-03 13:45 | ED.DENTAL ---
HPI - Dental/Oral General Chief complaint: Dental/Oral Stated complaint: Gum Irritation Time Seen by Provider: 05/03/25 13:44 Source: patient Mode of arrival: ambulatory Limitations: no limitations History of Present Illness HPI Narrative: Pt is a 29 y/o male presenting with c/o L. upper gum irritation. Pt reports bump above his L. upper molar. Reports ongoing problem but states it has worsened over the last several days. Is requesting an abx. 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 No additional complaints. Related Data Home Medications ?Medication ?Instructions ?Recorded ?Confirmed ?Last Taken ?Type lisinopril 20 mg tablet 20 mg PO DAILY 11/29/24 05/03/25 Unknown History lurasidone 20 mg tablet (Latuda) 20 mg PO DAILY 11/29/24 05/03/25 Unknown History hydroxyzine pamoate 50 mg capsule 50 mg PO TID 02/02/25 05/03/25 Unknown History pantoprazole 40 mg tablet,delayed 40 mg PO DAILY 05/03/25 05/03/25 Unknown History release Allergies Allergy/AdvReac Type Severity Reaction Status Date / Time No Known Allergies Allergy Verified 05/03/25 13:47 Review of Systems Review of Systems: CONSTITUTIONAL: Denies body aches, fever, chills, or sweats. EYES: Denies visual changes, redness, or discharge. ENT: L. gum irritation/pain. Denies rhinorrhea, congestion, sore throat, or otalgia. CARDIOVASCULAR: Denies chest pain, palpitations, or edema. RESPIRATORY: Denies cough or dyspnea. GASTROINTESTINAL: Denies abdominal pain, nausea, vomiting, or diarrhea. GENITOURINARY: Denies dysuria or hematuria. SKIN: Denies rash, itching, or wounds. MUSCULOSKELETAL: Denies back pain, joint pain, or myalgia. NEUROLOGIC: Denies headache, numbness, tingling, or weakness. PSYCH: Denies depression or anxiety. All systems reviewed & are unremarkable except as noted in HPI and below PMFSH Past Medical History Medical History Morbid obesity Gastritis Irritable bowel syndrome Surgical History Surgical History History of adenoidectomy History of endoscopy History of colonoscopy History of tonsillectomy History of knee surgery Bilateral Family History Family History Father Diabetes mellitus Hypertension Other Family history of allergic disorder Family history of malignant neoplasm Social History Social History Alcohol intake: current Substance use: current Substance use type: marijuana Gender identity (if verbalized by the patient): Male Exam Narrative: GENERAL: Well-appearing, well-nourished, morbidly obese, and in no acute distress. HEAD: Normocephalic, atraumatic. EYES: EOMI. No redness or drainage. Conjunctivae normal. ENT: Mucous membranes pink and moist. Nares clear. No rhinorrhea. No trismus. NO evidence of beth angina. NO visible/palpable gingival abscess. Poor dentition throughout oral cavity with various stages of decay, +plaque buildup, Throat normal. Uvula midline. NECK: Normal AROM. Supple. CHEST: No respiratory distress. HEART: Regular rate Normal peripheral pulses. SKIN: Warm, dry, no rash. Capillary refill normal. Normal skin turgor. NEURO: No focal deficits. Alert and oriented x3. Gait steady. PSYCH: Normal affect. No signs of depression or anxiety. Course Course Level of Care: Express Care Visit Vital Signs Vital signs: Vital Signs Temperature 96.7 F L 05/03/25 13:50 Pulse Rate 103 H 05/03/25 13:50 Respiratory Rate 16 05/03/25 13:50 Blood Pressure 116/77 05/03/25 13:50 Pulse Oximetry 97 05/03/25 13:50 Temperature 96.7 F L 05/03/25 13:50 Pulse Rate 103 H 05/03/25 13:50 Respiratory Rate 16 05/03/25 13:50 Blood Pressure 116/77 05/03/25 13:50 Pulse Oximetry 97 05/03/25 13:50 Discharge Plan Discharge Clinical Impression: Pain in gums, Dental decay Patient Disposition: Home Condition: Stable Instructions: Antibiotic Form, Dental Abscess (ED) Additional Instructions: Follow-up with your dentist MARLYS. Go straight to ER should your symptoms become worse or should any new symptoms develop Patient Language: Urdu Prescriptions: New penicillin V potassium 500 mg tablet 500 mg PO Q12H 7 Days Qty: 14 0RF No Action pantoprazole 40 mg tablet,delayed release (DR/EC) 40 mg PO DAILY hydroxyzine pamoate 50 mg capsule 50 mg PO TID lisinopril 20 mg tablet 20 mg PO DAILY lurasidone [Latuda] 20 mg tablet 20 mg PO DAILY Rx Instructions: must administer with food (at least 350 calories) Follow-up/Referrals: PHYSICIAN,READING INTERVENTION TEACHER [Primary Care Provider, Internal Medicine] - 05/04/25 Time of Disposition: 13:53
[2025-05-03 13:50] VITALS: BP 116/77; PULSE 103; RESP 16; TEMP 35.9; O2SAT 97
== END 2025-05-03 13:56 | disposition home or self-care (01) ==
PROVIDERS: Emergency Provider Registered Nurse
DX: K02.9 Dental caries, unspecified (principal); Z79.899 Other long term (current) drug therapy
CPT/HCPCS: 99213; G0463